=== PATIENT | female | born 1980 | race American Indian/Alaskan Native ===

== ENCOUNTER 2017-05-29 16:27 | Inpatient (IN) | payer BC, OTHER ==
--- NOTE | 2017-05-29 17:02 | Emergency Department Report ---
HPI - General Chief Complaint: Adult Asthma Time Seen by Provider: 05/29/17 16:46 - HPI HPI: 37-year-old female presents to the emergency department by EMS from home with complaint of shortness of breath, wheezing and some chest tightness. The patient has a history of asthma. EMS came by the house earlier for similar symptoms but she started to feel better after a breathing treatment. After they left, the symptoms appeared to worsen so EMS was called back and has since then brought her in for further evaluation. In route she received breathing treatments, supplemental oxygen and Solu-Medrol. She says that she had a history of pneumonia back in August 2016 and says that "this feels similar." She denies any fever, back pain, nausea, vomiting or diaphoresis. She is a tobacco smoker but denies any illicit drug use or abuse. She uses 2 different inhalers and has a nebulizer breathing machine at home that has not helped her symptoms. No recent travel or sick contacts at home, immobility or recent surgery. She does not have a primary care physician. ED Past Medical Hx - Past Medical History Hx Hypertension: Yes Hx Asthma: Yes - Surgical History Additional Surgical History: laproscopic, myomectomy - Social History Smoking Status: Current Every Day Smoker - Medications Home Medications: Home Medications Medication Instructions Recorded Confirmed Last Taken Type Omeprazole 40 mg PO QAC 05/29/17 05/29/17 Unknown History traMADol [Ultram] 50 mg PO Q6HR PRN 05/29/17 05/29/17 Unknown History ED Review of Systems ROS: Stated complaint: MP Other details as noted in HPI Comment: All other systems reviewed and negative Constitutional: denies: chills, fever Eyes: denies: eye pain, eye discharge, vision change ENT: denies: ear pain, throat pain Respiratory: cough, shortness of breath, wheezing Cardiovascular: denies: palpitations, edema Gastrointestinal: denies: abdominal pain, nausea, diarrhea Genitourinary: denies: urgency, dysuria, discharge Musculoskeletal: denies: back pain, joint swelling, arthralgia Skin: denies: rash, lesions Neurological: denies: headache, weakness, paresthesias Physical Exam - Physical Exam Physical Exam: GENERAL: The patient is well-developed well-nourished. HENT: Normocephalic. Atraumatic. Patient has moist mucous membranes. EYES: Extraocular motions are intact. Pupils equal reactive to light bilaterally. NECK: Supple. Trachea is midline. CHEST/LUNGS: Coarse breath sounds. There is some tachypnea with accessory muscle use. No cough heard during examination. There is some respiratory distress noted. HEART/CARDIOVASCULAR: Regular. There is mild tachycardia. There is no murmur. ABDOMEN: Abdomen is soft, nontender. Patient has normal bowel sounds. Obese habitus. SKIN: Skin is warm and dry. NEURO: The patient is awake, alert, and oriented. The patient is cooperative. The patient has no focal neurologic deficits. The patient has normal speech. MUSCULOSKELETAL: There is no tenderness or deformity. There is no limitation range of motion. There is no evidence of acute injury. ED Course - Reevaluation(s) Reevaluation #1: Patient had a pulse ox in the 90s while on the nonrebreather upon arrival to the emergency department. We attempted to titrate her down to nasal cannula. However when she was on 2 L nasal cannula for a while the patient was found to have hypoxia in the mid 80s. We started titrating back up with the patient still remained hypoxic and required BiPAP placement. An ABG obtained prior to the BiPAP shows no acidosis or hypercapnia but there is significant hypoxia with a PO2 of 32 while on supplemental oxygen. Chest x-ray shows some mild edema but no pleural effusions and no pneumonia. BNP is greater than 1000. D- dimer is greater than 2000. She is awaiting a CT angiography of the chest. 05/29/17 19:08 Reevaluation #2: 05/29/17 20:39 The patient was placed on the BiPAP earlier which did help with the hypoxia but the patient still had increased work of breathing and had a respiratory rate that varied between 45 and 60 breaths per minute. She did not complain of any claustrophobia or anxiety and yet she was severely breathing over the BiPAP machine. I had a long conversation with the patient and her mother about intubation in order to get the work of breathing under control. We attempted another breathing treatment and some IV magnesium but it did not help and eventually the decision was made between all of us that we will proceed with the intubation procedure. - Consultations Consultation #1: I spoke with the [facility] and got permission to keep the patient by Dr. Rogers. 05/29/17 20:41 - ABG Interpretation Ph: [phone] PCO2: 28 PO2: 32 Bicarbonate: 19 Interpretation: respiratory alkalosis, other (hypoxemia) - Intubation Time Out Performed: Yes Sedative: Etomidate Mg Given: 20 Paralytic: Rocuronium Mg Given: 100 Laryngoscope: other (glydescope) Size: 4 Assist Device Used: Bougie ET Tube Size: 7.5 Tube Secured Depth (cm): 24 Tube Placement Confirmation: visualized tube passing t, equal breath sounds bilat, confirmation by capnometr Patient Tolerated Procedure: well Intubation Complications: other (airway edematous, used bougie) ED Medical Decision Making - Lab Data Result diagrams: 05/31/17 08:49 05/31/17 08:49 - EKG Data -: EKG Interpreted by Me EKG shows normal: sinus rhythm, axis, intervals, QRS complexes, ST-T waves Rate: tachycardia (123 bpm) - EKG Data When compared to previous EKG there are: previous EKG unavailable Interpretation: normal EKG (sinus tachycardia) - Radiology Data Radiology results: report reviewed, image reviewed interpreted by me: There is bilateral opacities and/or infiltrates. This could be edema versus pneumonia. No layering pleural effusion seen. No pneumothorax. EXAM: CT ANGIO CHEST HISTORY: SOB, elevated dimer TECHNIQUE: A CT angiogram was performed following the intravenous injection of 100 cc of Omnipaque 350. Rotational, sagittal and coronal MIP reconstructions were reviewed. FINDINGS: There is no evidence of pulmonary embolus or aortic dissection. The heart size is normal. The lungs appear diffusely congested with extensive airspace disease in both lungs and small pleural effusions. The patient is intubated with the tip of the ET tube in good position above the serjio. The thoracic aorta is normal in caliber. At the thoracic inlet the thyroid gland appears normal. In the upper abdomen there is an NG tube coursing into the stomach. The adrenal glands are not enlarged. The skeletal structures are well-maintained. IMPRESSION: No evidence of pulmonary embolus or aortic dissection. Extensive bilateral airspace disease in both lungs with small effusions. As to whether the findings are related to pulmonary edema versus diffuse bilateral pneumonia is uncertain. Satisfactory position of the ET tube and NG tube. Transcribed By: RB Dictated By: ELLE MCMILLAN MD Electronically Authenticated By: ELLE MCMILLAN MD Signed Date/Time: 05/30/17 5545 - Medical Decision Making Patient presented originally with a complaint of some shortness of breath, chest tightness and history of asthma and tobacco abuse. Patient received steroids in route as well as some breathing treatments. The chest x-ray appeared consistent with either bilateral edema versus infiltrates. She does have a leukocytosis, blood cultures were sent and she was started on empiric antibiotics. She was also given some Lasix to try and start diuresis. Patient had some hypoxia with supplemental oxygen by nasal cannula and was titrated up to the BiPAP machine. However her respiratory status appeared to worsen and despite having a normal pulse ox on BiPAP, she had a respiratory rate between 50 and 60 and continued to have increased work of breathing. After a lengthy discussion between the patient and her mother, the decision was made to intubate the patient for protection of airway and to help with the work of breathing. Patient was intubated. Repeat chest x-ray shows some increased infiltrates or edema. Right now she has a pulse ox in the low 90s. She will get a CT angiography of the chest to rule out a PE as etiology of her symptoms. She was given some Lasix for diuresis. The patient will be admitted to the nighttime hospitalist, Dr Santiago, who will follow the CT angiography chest results. - Differential Diagnosis CHF, pneumonia, asthma, sepsis Critical Care Time: Yes Critical care time in (mins) excluding proc time.: 35 Critical care attestation.: If time is entered above; I have spent that time in minutes in the direct care of this critically ill patient, excluding procedure time. Critical care time was spent on this patient during her initial evaluation, multiple re-evaluations , lengthy discussion with the patient and family, ordering interpretation of labs and imaging, disposition planning, discussion with the hospitalist, titration of sedation medication, administration of antibiotics and diuretics. This does not include the time spent doing the intubation procedure. ED Disposition Clinical Impression: Hypoxia, Tobacco abuse, Acute respiratory failure with hypoxia Respiratory failure Qualifiers: Chronicity: acute Respiratory failure complication: hypoxia Qualified Code(s): J96.01 - Acute respiratory failure with hypoxia Leukocytosis Qualifiers: Leukocytosis type: unspecified Qualified Code(s): D72.829 - Elevated white blood cell count, unspecified Disposition: OP ADMIT IP TO THIS HOSP Is pt being admited?: Yes Condition: Serious
[2017-05-29] MEDS ORDERED: NACL 0.9% 1000 ML 1,000 ML IV ONE (17:11)
[2017-05-29 17:17] LABS: BUN/Creatinine Ratio 18; Blood Urea Nitrogen 9 mg/dL (7-17); Calcium 8.4 mg/dL (8.4-10.2); Hemolysis Index 8
[2017-05-29 17:27] LABS: Hematocrit 33.5 % (30.3-42.9); Hemoglobin 10.7 gm/dl (10.1-14.3); Red Blood Count 4.03 M/mm3 (3.65-5.03)
[2017-05-29 17:28] LABS: Mean Corpuscular HGB Conc 32 % (30-34); Mean Corpuscular Hemoglobin 27 pg (28-32); Mean Corpuscular Volume 83 fl (79-97); Platelet Count 344 K/mm3 (140-440); Red Cell Distribution Width 18.8 % (13.2-15.2)
--- NOTE | 2017-05-29 17:50 | XRay Report ---
FINAL REPORT EXAM: XR CHEST 1V AP HISTORY: SOB TECHNIQUE: AP portable view of the chest PRIORS: None. FINDINGS: Lines, tubes, and devices: N/A Lungs and pleura: Trachea is normal in position. Bilateral symmetrical alveolar infiltrates are present suggesting pulmonary edema with perihilar distribution. There is no evidence for pleural effusion, vascular congestion, or pneumothorax. Cardiomediastinal silhouette: Cardiac and mediastinal silhouettes are unremarkable. Other: Bony structures are intact. Extensive haziness over the lung bases is likely due to generous overlying soft tissues. IMPRESSION: Findings suggesting pulmonary edema bilaterally.
[2017-05-29] MEDS ORDERED: ATROVENT IH ONE ×2 (17:52→20:15)
[2017-05-29] MEDS ORDERED: PROVENTIL IH ONE (17:52)
[2017-05-29 18:31] LABS: Band Neutrophils # (Manual) 1.5 K/mm3; Basophils % (Manual) 0 % (0.0-1.8); Eosinophils % (Manual) 0 % (0.0-4.3); Hypochromasia 1+; Ovalocytes Few; Platelet Estimate Consistent w Auto; Total Cells Counted 100
[2017-05-29] MEDS ORDERED: ZITHROMAX 500 MG in NACL 0.9% 250ML 250 ML IV ONE (18:50)
[2017-05-29] MEDS ORDERED: ROCEPHIN/NS 1 GM/50 ML 1 GM/50 ML BAG IV ONE (18:50)
[2017-05-29] MEDS ORDERED: NACL ONE (19:05)
[2017-05-29] MEDS ORDERED: cefTRIAXone 1 GM in NACL 0.9% 20 ML IV ONE (19:15)
[2017-05-29] MEDS ORDERED: MAGNESIUM SULFATE 2GM/50ML 2 GM/50 ML BAG IV ONE (19:33)
[2017-05-29] MEDS ORDERED: XOPENEX IH ONE ×2 (19:36→20:15)
[2017-05-29] MEDS ORDERED: ARTIFICIAL TEARS OPHTH OINT OU PRN (20:11)
[2017-05-29] MEDS ORDERED: VASELINE LIP THERAPY TP PRN (20:11)
[2017-05-29] MEDS ORDERED: LASIX IV ONE (20:56)
[2017-05-29] MEDS: DIPRIVAN 10 MG/ML 1,000 MG/100 ML BOTTLE IV SCH (21:11)
[2017-05-29] MEDS ORDERED: KETALAR ONE (21:18)
[2017-05-29] MEDS ORDERED: AMIDATE IV ONE (21:18)
[2017-05-29] MEDS ORDERED: ZEMURON IV ONE (21:18)
--- NOTE | 2017-05-29 21:20 | XRay Report ---
FINAL REPORT EXAM: XR CHEST 1V AP HISTORY: ETT placement TECHNIQUE: AP portable view of the chest PRIORS: CXR 05/29/2017 FINDINGS: Lines, tubes, and devices: An endotracheal tube terminates 1.6 cm above the serjio. Lungs and pleura: Trachea is normal in position. Haziness throughout the lower 2/3 of both lung montero suggest pleural effusions tracking posteriorly. There is also bilateral alveolar infiltrates suggesting pulmonary edema, worse than seen previously. Cardiomediastinal silhouette: Cardiac and mediastinal silhouettes are unremarkable. Other: Bony structures are intact. IMPRESSION: 1. Endotracheal tube terminating 1.6 cm above the serjio 2. Bilateral pleural effusions tracking posteriorly 3. Bilateral pulmonary edema, worse than seen previously.
[2017-05-29] MEDS ORDERED: DULCOLAX PR PRN (22:47)
[2017-05-29] MEDS ORDERED: MILK OF MAGNESIA PO PRN (22:47)
[2017-05-29] MEDS ORDERED: ALUM-MAG HYDROX-SIMETH 200-200-20MG/5ML PO PRN (22:47)
[2017-05-29] MEDS ORDERED: DIPRIVAN 10 MG/ML 1,000 MG/100 ML BOTTLE IV ONE (23:36)
--- NOTE | 2017-05-30 00:13 | History and Physical Report ---
History of Present Illness Date of admission: 05/29/17 22:47 Chief complaint: worsening dyspnea History of present illness: 37-year-old female presents to the emergency department by EMS from home with complaint of shortness of breath, wheezing and some chest tightness. The patient has a history of asthma. EMS came by the house earlier for similar symptoms but she started to feel better after a breathing treatment. After they left, the symptoms appeared to worsen so EMS was called back and has since then brought her in for further evaluation. In route she received breathing treatments, supplemental oxygen and Solu-Medrol. She says that she had a history of pneumonia back in August 2016 and says that "this feels similar." She denies any fever, back pain, nausea, vomiting or diaphoresis. She is a tobacco smoker but denies any illicit drug use or abuse. She uses 2 different inhalers and has a nebulizer breathing machine at home that has not helped her symptoms. No recent travel or sick contacts at home, immobility or recent surgery. She does not have a primary care physician. she was put on BIPAP and subsequently intubated as her respiratory function was deteriorating. presently she is intubated and sedated and there is no family member in the room. Hx unobtainable and the hx is based on the ED physician report Past History Past Medical History: other (asthma) Past Surgical History: Other (myomectomy) Social history: denies: smoking Family history: no significant family history Medications and Allergies Allergies Allergy/AdvReac Type Severity Reaction Status Date / Time No Known Allergies Allergy Verified 07/31/13 21:05 Home Medications Medication Instructions Recorded Confirmed Last Taken Type Omeprazole 40 mg PO QAC 05/29/17 05/29/17 Unknown History traMADol [Ultram] 50 mg PO Q6HR PRN 05/29/17 05/29/17 Unknown History Active Meds: Active Medications Al Hydrox/Mg Hydrox/Simethicone (Alum-Mag Hydrox-Simeth [id number]/5ml) 30 ml PO Q4H PRN PRN Reason: Indigestion Albuterol/Ipratropium (Duoneb *Not For Prn Use*) 1 ampul IH Q6HRT EMIL Arformoterol Tartrate (Brovana Nebu) 15 mcg IH Q12HRT EMIL Bisacodyl (Dulcolax) 10 mg [place] QDAY PRN PRN Reason: constipation unrelieved by MOM Budesonide (Pulmicort) 0.5 mg IH Q12HRT EMIL Heparin Sodium (Porcine) (Heparin) 5,000 unit SUB-Q Q8HR EMIL Hydrophilic Ointment (Vaseline Lip Therapy) 1 applic TP Q2HR PRN PRN Reason: Dry Lips Propofol (Diprivan 10 Mg/Ml) 1,000 mg in 100 mls @ 3.143 mls/hr IV TITR EMIL; Protocol Last Admin: 05/29/17 21:11 Dose: 25 mcg/kg/min, 15.717 mls/hr Dextrose/Sodium Chloride (D5/0.45ns) 1,000 mls @ 75 mls/hr IV DIRECT EMIL Azithromycin 500 mg/ Sodium (Chloride) 250 mls @ 250 mls/hr IV Q24HR EMIL Ceftriaxone Sodium 1 gm/ (Sodium Chloride) 20 mls @ 20 mls/10 min IV DAILY EMIL ; Protocol Magnesium Hydroxide (Milk Of Magnesia) 30 ml PO Q4H PRN PRN Reason: Constipation Methylprednisolone Sodium Succinate (Solu-Medrol) 80 mg IV Q6HR EMIL Multi-Ingred Cream/Lotion/Oil/Oint (Artificial Tears Ophth Oint) 1 applic OU Q4HR PRN PRN Reason: Dry Eye(s) Review of Systems All systems: negative (ROS cannot be performed as she is intubated and sedated) Exam - Constitutional Vitals: Temp Pulse Resp BP Pulse Ox 98.8 F 110 H 27 H 130/60 93 05/29/17 17:04 05/29/17 22:00 05/29/17 22:00 05/29/17 22:00 05/29/17 22:00 General appearance: Present: obese - EENT Eyes: Present: PERRL - Neck Neck: Present: supple. Absent: masses or JVD - Respiratory Respiratory effort: normal Respiratory: bilateral: diminished, wheezing (scattered wheezing), negative: rhonchi - Cardiovascular Rhythm: other (tachicardia) Heart Sounds: Present: S1 & S2 - Extremities Extremity abnormal: edema (trace leg edema pari) - Abdominal General gastrointestinal: Present: soft, non-tender. Absent: hepatomegaly, splenomegaly - Rectal Rectal Exam: deferred - Integumentary Integumentary: Present: clear - Neurologic Neurologic: other (unable to perform as she is sedated) Results - Labs CBC & Chem 7: 05/29/17 16:41 05/29/17 16:41 Labs: Abnormal lab results 05/29/17 05/29/17 05/29/17 Range/Units 16:41 16:41 16:58 WBC 21.6 H (4.5-11.0) K/mm3 MCH 27 L (28-32) pg RDW 18.8 H (13.2-15.2) % Seg Neuts % (Manual) 90.0 H (40.0-70.0) % Lymphocytes % (Manual) 1.0 L (13.4-35.0) % Seg Neutrophils # Man 19.4 H (1.8-7.7) K/mm3 Lymphocytes # (Manual) 0.2 L (1.2-5.4) K/mm3 D-Dimer 2328.67 H (0-234) ng/mlDDU POC ABG pH (7.35-7.45) POC ABG pCO2 (35-45) POC ABG pO2 (80-105) Creatinine 0.5 L (0.7-1.2) mg/dL Glucose 121 H (65-100) mg/dL NT-Pro-B Natriuret Pep (0-450) pg/mL 05/29/17 05/29/17 05/29/17 Range/Units 16:58 18:36 20:55 WBC (4.5-11.0) K/mm3 MCH (28-32) pg RDW (13.2-15.2) % Seg Neuts % (Manual) (40.0-70.0) % Lymphocytes % (Manual) (13.4-35.0) % Seg Neutrophils # Man (1.8-7.7) K/mm3 Lymphocytes # (Manual) (1.2-5.4) K/mm3 D-Dimer (0-234) ng/mlDDU POC ABG pH 7.240 L (7.35-7.45) POC ABG pCO2 28.7 L 47.0 H (35-45) POC ABG pO2 32 L 43 L (80-105) Creatinine (0.7-1.2) mg/dL Glucose (65-100) mg/dL NT-Pro-B Natriuret Pep 1053 H (0-450) pg/mL Assessment and Plan - Patient Problems (1) Acute respiratory failure with hypoxia Current Visit: Yes Status: Acute Plan to address problem: admit to ICU patient is intubated pulmonary consult to Dr. Marshall. he was notified and personally informed vent. management per Dr. Marshall Empiric IV abx (2) Asthma exacerbation Current Visit: Yes Status: Acute Qualifiers: Asthma severity: severe Plan to address problem: start on duoneb via nebulizer Q6 hrs , start on pulmicort and LABA via nebulizer and IV steroids (3) Neutrophilic leukocytosis Current Visit: Yes Status: Acute Plan to address problem: possible ? pneumonia blood cultures x 2 start on empiric abx check procalcitonin (4) Obesity Current Visit: Yes Status: Chronic Qualifiers: Obesity type: due to excess calories (5) Normocytic anemia Current Visit: Yes Status: Chronic Plan to address problem: mild, no overt bleed . needs w/u as an out patient
[2017-05-30] MEDS ORDERED: NACL ONE (00:29)
[2017-05-30] MEDS ORDERED: MAGNESIUM SULFATE IV ONE (01:37)
[2017-05-30] MEDS ORDERED: DIPRIVAN 10 MG/ML 1,000 MG/100 ML BOTTLE IV ONE ×2 (01:59→05:31)
[2017-05-30] MEDS ORDERED: fentaNYL DRIP Premix 2,000 MCG/100 ML BAG IV ONE (03:29)
[2017-05-30] MEDS: fentaNYL DRIP Premix 2,000 MCG/100 ML BAG IV SCH ×5 (03:45→19:30)
[2017-05-30 03:52] LABS: Hematocrit 33.3 % (30.3-42.9); Hemoglobin 10.7 gm/dl (10.1-14.3); Mean Corpuscular HGB Conc 32 % (30-34); Mean Corpuscular Hemoglobin 26 pg (28-32); Mean Corpuscular Volume 82 fl (79-97); Platelet Count 324 K/mm3 (140-440); Red Blood Count 4.06 M/mm3 (3.65-5.03); Red Cell Distribution Width 18.6 % (13.2-15.2)
[2017-05-30 04:17] LABS: BUN/Creatinine Ratio 16; Blood Urea Nitrogen 8 mg/dL (7-17); Calcium 8.2 mg/dL (8.4-10.2); Hemolysis Index 8
[2017-05-30 05:57] LABS: Total Cells Counted 100
--- NOTE | 2017-05-30 05:57 | Cat Scan Report ---
FINAL REPORT EXAM: CT ANGIO CHEST HISTORY: SOB, elevated dimer TECHNIQUE: A CT angiogram was performed following the intravenous injection of 100 cc of Omnipaque 350. Rotational, sagittal and coronal MIP reconstructions were reviewed. FINDINGS: There is no evidence of pulmonary embolus or aortic dissection. The heart size is normal. The lungs appear diffusely congested with extensive airspace disease in both lungs and small pleural effusions. The patient is intubated with the tip of the ET tube in good position above the serjio. The thoracic aorta is normal in caliber. At the thoracic inlet the thyroid gland appears normal. In the upper abdomen there is an NG tube coursing into the stomach. The adrenal glands are not enlarged. The skeletal structures are well-maintained. IMPRESSION: No evidence of pulmonary embolus or aortic dissection. Extensive bilateral airspace disease in both lungs with small effusions. As to whether the findings are related to pulmonary edema versus diffuse bilateral pneumonia is uncertain. Satisfactory position of the ET tube and NG tube.
[2017-05-30 05:58] LABS: Band Neutrophils # (Manual) 6.5 K/mm3; Basophils % (Manual) 0 % (0.0-1.8); Eosinophils % (Manual) 0 % (0.0-4.3)
[2017-05-30 05:59] LABS: Anisocytosis 1+; Hypochromasia 1+; Ovalocytes Few
[2017-05-30] MEDS: HEPARIN SUB-Q SCH ×3 (06:51→21:34)
[2017-05-30] MEDS: PULMICORT IH SCH ×5 (08:17→20:52)
[2017-05-30] MEDS: DUONEB *Not for PRN Use IH SCH ×4 (08:17→20:50)
[2017-05-30] MEDS: BROVANA NEBU IH SCH ×3 (08:18→19:40)
[2017-05-30] MEDS: DIPRIVAN 10 MG/ML 1,000 MG/100 ML BOTTLE IV SCH ×5 (09:06→20:42)
--- NOTE | 2017-05-30 09:22 | XRay Report ---
Single view chest: Compared to 05/29/17. History: Followup for respiratory failure. Findings: Cardiomegaly. Tip of endotracheal tube in normal position. Pulmonary venous congestion with bilateral diffuse infiltrates. No significant interval change. Impression: No significant interval change.
--- NOTE | 2017-05-30 09:45 | Event Note ---
Date: 05/30/17 Patient with acute respiratory failure due to asthma exacerbation. I have seen and examined her. She is intubated on ventilator. Continue current management.
[2017-05-30] MEDS ORDERED: TYLENOL PR ONE (11:03)
[2017-05-30] MEDS ORDERED: NACL 0.9% 100 ML ONE (11:18)
[2017-05-30] MEDS: cefTRIAXone 1 GM in NACL 0.9% 20 ML IV SCH (11:45)
[2017-05-30] MEDS: ZITHROMAX 500 MG in NACL 0.9% 250ML 250 ML IV SCH (12:40)
--- NOTE | 2017-05-30 17:08 | Consultation ---
History of Present Illness Consult date: 05/30/17 Requesting physician: LEO BAJWA Reason for consult: hypoxemia History of present illness: 37 y/o female, with known asthma and HTN admitted with acute respiratory failure. Intubated in ED. Unable to give much history now that intubated. Awake on Propofol and Fent. Rass of 0 and [place] of 2. No family at bedside. CXR consistent with bilateral alveolar infiltrates, most likely EDEMA. Past History Past Medical History: GERD, hypertension, other (asthma) Past Surgical History: Other (myomectomy) Social history: denies: smoking Family history: no significant family history Medications and Allergies Allergies Allergy/AdvReac Type Severity Reaction Status Date / Time No Known Allergies Allergy Verified 07/31/13 21:05 Home Medications Medication Instructions Recorded Confirmed Last Taken Type Omeprazole 40 mg PO QAC 05/29/17 05/29/17 Unknown History traMADol [Ultram] 50 mg PO Q6HR PRN 05/29/17 05/29/17 Unknown History Active Meds: Active Medications Al Hydrox/Mg Hydrox/Simethicone (Alum-Mag Hydrox-Simeth 531-427-63sg/5ml) 30 ml PO Q4H PRN PRN Reason: Indigestion Albuterol/Ipratropium (Duoneb *Not For Prn Use*) 1 ampul IH Q6HRT [facility] Last Admin: 05/30/17 14:24 Dose: 1 ampul Arformoterol Tartrate (Brovana Nebu) 15 mcg IH Q12HRT [facility] Last Admin: 05/30/17 08:18 Dose: 15 mcg Bisacodyl (Dulcolax) 10 mg LA QDAY PRN PRN Reason: constipation unrelieved by MOM Budesonide (Pulmicort) 0.5 mg IH Q12HRT [facility] Last Admin: 05/30/17 08:17 Dose: 0.5 mg Heparin Sodium (Porcine) (Heparin) 5,000 unit SUB-Q Q8HR [facility] Last Admin: 05/30/17 06:51 Dose: 5,000 unit Hydrophilic Ointment (Vaseline Lip Therapy) 1 applic TP Q2HR PRN PRN Reason: Dry Lips Last Admin: 05/30/17 10:42 Dose: 1 applic Propofol (Diprivan 10 Mg/Ml) 1,000 mg in 100 mls @ 3.143 mls/hr IV TITR [facility]; Protocol Last Admin: 05/30/17 15:55 Dose: 25 mcg/kg/min, 15.717 mls/hr Dextrose/Sodium Chloride (D5/0.45ns) 1,000 mls @ 75 mls/hr IV DIRECT [facility] Azithromycin 500 mg/ Sodium (Chloride) 250 mls @ 250 mls/hr IV Q24HR [facility] Last Admin: 05/30/17 12:40 Dose: 250 mls/hr Ceftriaxone Sodium 1 gm/ (Sodium Chloride) 20 mls @ 20 mls/10 min IV DAILY [facility] ; Protocol Last Admin: 05/30/17 11:45 Dose: 20 mls/10 min Fentanyl Citrate (Fentanyl Drip Premix) 2,000 mcg in 100 mls @ 5.239 mls/hr IV TITR [facility]; Protocol Last Admin: 05/30/17 16:23 Dose: 4 mcg/kg/hr, 20.956 mls/hr Magnesium Hydroxide (Milk Of Magnesia) 30 ml PO Q4H PRN PRN Reason: Constipation Methylprednisolone Sodium Succinate (Solu-Medrol) 80 mg IV Q6HR [facility] Last Admin: 05/30/17 06:51 Dose: 80 mg Multi-Ingred Cream/Lotion/Oil/Oint (Artificial Tears Ophth Oint) 1 applic OU Q4HR PRN PRN Reason: Dry Eye(s) Review of Systems ROS unobtainable: due to endotracheal tube Physical Examination Vital signs: Vital Signs Pulse Ox 89 05/29/17 16:32 General appearance: no acute distress, alert Eyes: non-icteric ENT: other (orally intubated and sedated) Neck: supple Effort: normal Ascultation: Bilateral: diminished breath sounds, rales (ocassional) Percussion: Bilateral: not dull Cardiovascular: regular rate and rhythm Gastrointestinal: normoactive bowel sounds, soft, other (mildly obese) Integumentary: normal Extremities: edema Musculoskeletal: no deformities normal mental status, non-focal exam Results - Laboratory Findings CBC and BMP: 05/31/17 08:49 05/31/17 08:49 ABG POC ABG pH 7.399 (7.35-7.45) 05/30/17 04:30 POC ABG pCO2 40.9 (35-45) 05/30/17 04:30 POC ABG pO2 68 (80-105) L 05/30/17 04:30 POC ABG HCO3 25.3 05/30/17 04:30 POC ABG Total CO2 27 05/30/17 04:30 POC ABG O2 Sat 93 05/30/17 04:30 PT/INR, D-dimer D-Dimer 2328.67 ng/mlDDU (0-234) H 05/29/17 16:58 Abnormal lab findings: Abnormal Labs 05/29/17 05/29/17 05/29/17 16:41 16:41 16:58 WBC 21.6 H MCH 27 L RDW 18.8 H Seg Neuts % (Manual) 90.0 H Lymphocytes % (Manual) 1.0 L Seg Neutrophils # Man 19.4 H Lymphocytes # (Manual) 0.2 L D-Dimer 2328.67 H POC ABG pH POC ABG pCO2 POC ABG pO2 Creatinine 0.5 L Glucose 121 H Calcium NT-Pro-B Natriuret Pep 05/29/17 05/29/17 05/29/17 16:58 18:36 20:55 WBC MCH RDW Seg Neuts % (Manual) Lymphocytes % (Manual) Seg Neutrophils # Man Lymphocytes # (Manual) D-Dimer POC ABG pH 7.240 L POC ABG pCO2 28.7 L 47.0 H POC ABG pO2 32 L 43 L Creatinine Glucose Calcium NT-Pro-B Natriuret Pep 1053 H 05/30/17 05/30/17 05/30/17 03:38 03:38 04:30 WBC 30.8 H MCH 26 L RDW 18.6 H Seg Neuts % (Manual) 74.0 H Lymphocytes % (Manual) 4.0 L Seg Neutrophils # Man 22.8 H Lymphocytes # (Manual) D-Dimer POC ABG pH POC ABG pCO2 POC ABG pO2 68 L Creatinine 0.5 L Glucose 165 H Calcium 8.2 L NT-Pro-B Natriuret Pep - Diagnostic Findings Chest x-ray: image reviewed (as stated in HPI) Assessment and Plan 37 y/o female with known asthma and HTN admitted with acute respiratory failure , likely secondary to pulmonary edema from noncompliance with medical therapy. 1. Per patient, is suppose to be on a diuretic but does not take it daily. BP is normalized now but likely because of sedative medication. Once dry and extubated will address with oral BP meds 2. Will give lasix today 3. Ok with steroids at current dosing 4. Continue BID pulmicort and brovana 5. Ok with abx therapy but if cultures negative will likely stop. White count could be stress related 6. Overall prognosis is guarded. CCT 31 minutes.
[2017-05-30] MEDS ORDERED: LASIX IV ONE (18:00)
[2017-05-30] MEDS: D5/0.45NS 1,000 ML IV SCH (20:38)
[2017-05-30] MEDS ORDERED: LASIX ONE (20:53)
[2017-05-31] MEDS: DIPRIVAN 10 MG/ML 1,000 MG/100 ML BOTTLE IV SCH ×4 (01:22→20:39)
[2017-05-31] MEDS: fentaNYL DRIP Premix 2,000 MCG/100 ML BAG IV SCH ×4 (01:22→20:38)
[2017-05-31] MEDS: DUONEB *Not for PRN Use IH SCH ×4 (02:32→20:38)
--- NOTE | 2017-05-31 02:43 | XRay Report ---
FINAL REPORT EXAM: XR CHEST 1V AP HISTORY: follow up respiratory failure TECHNIQUE: A portable semi-upright view the chest was obtained and compared to the study of 05/29/2017. FINDINGS: The lungs reveal partial clearance of airspace disease bilaterally. The heart size is normal. The ET tube and NG tube appear in good position. The bones and soft tissues otherwise are well maintained. IMPRESSION: Partial clearance of infiltrates/congestion since the previous study.
[2017-05-31] MEDS: HEPARIN SUB-Q SCH ×3 (05:12→22:25)
[2017-05-31] MEDS: PULMICORT IH SCH ×2 (07:13→19:04)
[2017-05-31] MEDS: BROVANA NEBU IH SCH ×2 (07:13→19:04)
--- NOTE | 2017-05-31 08:18 | Progress Note ---
Assessment and Plan Assessment and plan: Acute respiratory failure due to asthma exacerbation and acute pulmonary edema. She is intubated, on ventilator. Pulm following. Asthma exacerbation. Continue solumedrol, Duoneb Acute pulmonary edema, poss acute CHF. Obtain Echocardiogram, BNP. Lasix given. Continue lasix 40mg iv Q 12hr DVT prophylaxis with Heparin. Leukocytosis likely due to SIRS SIRS. Morbid obesity. Will tour counselor after extubated History Interval history: Patient still intubated, Patient with acute resp failure, No fever Hospitalist Physical - Physical exam Narrative exam: Gen appearance: Not in acute distress, lying in bed, orally intubated HEENT:Normocephalic,atraumatic Neck:supple, no JVD Lungs: Bilateral rhonchi, bilateral crackles Heart: S1 and S2 regular, no murmurs, rubs or gallop Abdomen: soft, non tender, non distended, normal bowel sounds Ext: Bilateral pedal edema, no clubbing, no cyanosis Neuro: Intubated, sedated - Constitutional Vitals: Temp Pulse Resp BP Pulse Ox 98.9 F 81 20 125/83 98 05/31/17 04:00 05/31/17 07:55 05/31/17 07:55 05/31/17 06:00 05/31/17 07:14 General appearance: Present: obese Results - Labs CBC & Chem 7: 05/31/17 08:49 05/31/17 08:49 Labs: Laboratory Last Values WBC 30.8 K/mm3 (4.5-11.0) H 05/30/17 03:38 RBC 4.06 M/mm3 (3.65-5.03) 05/30/17 03:38 Hgb 10.7 gm/dl (10.1-14.3) 05/30/17 03:38 Hct 33.3 % (30.3-42.9) 05/30/17 03:38 MCV 82 fl (79-97) 05/30/17 03:38 MCH 26 pg (28-32) L 05/30/17 03:38 MCHC 32 % (30-34) 05/30/17 03:38 RDW 18.6 % (13.2-15.2) H 05/30/17 03:38 Plt Count 324 K/mm3 (140-440) 05/30/17 03:38 Add Manual Diff Complete 05/30/17 03:38 Total Counted 100 05/30/17 03:38 Seg Neutrophils % Silhouette Artist 05/30/17 03:38 Seg Neuts % (Manual) 74.0 % (40.0-70.0) H 05/30/17 03:38 Band Neutrophils % 21.0 % 05/30/17 03:38 Lymphocytes % (Manual) 4.0 % (13.4-35.0) L 05/30/17 03:38 Reactive Lymphs % (Man) 0 % 05/30/17 03:38 Monocytes % (Manual) 1.0 % (0.0-7.3) 05/30/17 03:38 Eosinophils % (Manual) 0 % (0.0-4.3) 05/30/17 03:38 Basophils % (Manual) 0 % (0.0-1.8) 05/30/17 03:38 Metamyelocytes % 0 % 05/30/17 03:38 Myelocytes % 0 % 05/30/17 03:38 Promyelocytes % 0 % 05/30/17 03:38 Blast Cells % 0 % 05/30/17 03:38 Nucleated RBC % Not Reportable 05/30/17 03:38 Seg Neutrophils # Man 22.8 K/mm3 (1.8-7.7) H 05/30/17 03:38 Band Neutrophils # 6.5 K/mm3 05/30/17 03:38 Lymphocytes # (Manual) 1.2 K/mm3 (1.2-5.4) 05/30/17 03:38 Abs React Lymphs (Man) 0.0 K/mm3 05/30/17 03:38 Monocytes # (Manual) 0.3 K/mm3 (0.0-0.8) 05/30/17 03:38 Eosinophils # (Manual) 0.0 K/mm3 (0.0-0.4) 05/30/17 03:38 Basophils # (Manual) 0.0 K/mm3 (0.0-0.1) 05/30/17 03:38 Metamyelocytes # 0.0 K/mm3 05/30/17 03:38 Myelocytes # 0.0 K/mm3 05/30/17 03:38 Promyelocytes # 0.0 K/mm3 05/30/17 03:38 Blast Cells # 0.0 K/mm3 05/30/17 03:38 WBC Morphology Not Reportable 05/30/17 03:38 Hypersegmented Neuts Not Reportable 05/30/17 03:38 Hyposegmented Neuts Not Reportable 05/30/17 03:38 Hypogranular Neuts Not Reportable 05/30/17 03:38 Smudge Cells Not Reportable 05/30/17 03:38 Toxic Granulation Not Reportable 05/30/17 03:38 Toxic Vacuolation Not Reportable 05/30/17 03:38 Dohle Bodies Not Reportable 05/30/17 03:38 Pelger-Huet Anomaly Not Reportable 05/30/17 03:38 Aftab Rods Not Reportable 05/30/17 03:38 Platelet Estimate Appears normal 05/30/17 03:38 Clumped Platelets Not Reportable 05/30/17 03:38 Plt Clumps, EDTA Not Reportable 05/30/17 03:38 Large Platelets Not Reportable 05/30/17 03:38 Giant Platelets Not Reportable 05/30/17 03:38 Platelet Satelliting Not Reportable 05/30/17 03:38 Plt Morphology Comment Not Reportable 05/30/17 03:38 RBC Morphology Not Reportable 05/30/17 03:38 Dimorphic RBCs Not Reportable 05/30/17 03:38 Polychromasia Not Reportable 05/30/17 03:38 Hypochromasia 1+ 05/30/17 03:38 Poikilocytosis Not Reportable 05/30/17 03:38 Anisocytosis 1+ 05/30/17 03:38 Microcytosis Not Reportable 05/30/17 03:38 Macrocytosis Not Reportable 05/30/17 03:38 Spherocytes Not Reportable 05/30/17 03:38 Pappenheimer Bodies Not Reportable 05/30/17 03:38 Sickle Cells Not Reportable 05/30/17 03:38 Target Cells Not Reportable 05/30/17 03:38 Tear Drop Cells Not Reportable 05/30/17 03:38 Ovalocytes Few 05/30/17 03:38 Helmet Cells Not Reportable 05/30/17 03:38 [place] Bodies Not Reportable 05/30/17 03:38 [place] Rings Not Reportable 05/30/17 03:38 Ana Cells Not Reportable 05/30/17 03:38 Bite Cells Not Reportable 05/30/17 03:38 Crenated Cell Not Reportable 05/30/17 03:38 Elliptocytes Not Reportable 05/30/17 03:38 Acanthocytes (Spur) Not Reportable 05/30/17 03:38 Rouleaux Not Reportable 05/30/17 03:38 Hemoglobin C Crystals Not Reportable 05/30/17 03:38 Schistocytes Not Reportable 05/30/17 03:38 Malaria parasites Not Reportable 05/30/17 03:38 Stephen Bodies Not Reportable 05/30/17 03:38 Hem Pathologist Commnt No 05/30/17 03:38 D-Dimer 2328.67 ng/mlDDU (0-234) H 05/29/17 16:58 POC ABG pH 7.335 (7.35-7.45) L 05/31/17 04:12 POC ABG pCO2 51.1 (35-45) H 05/31/17 04:12 POC ABG pO2 94 (80-105) 05/31/17 04:12 POC ABG HCO3 27.3 05/31/17 04:12 POC ABG Total CO2 29 05/31/17 04:12 POC ABG O2 Sat 97 05/31/17 04:12 POC ABG Base Excess 1 05/31/17 04:12 FiO2 80 % 05/31/17 04:12 Sodium 139 mmol/L (137-145) 05/30/17 03:38 Potassium 4.2 mmol/L (3.6-5.0) 05/30/17 03:38 Chloride 100.9 mmol/L (98-107) 05/30/17 03:38 Carbon Dioxide 24 mmol/L (22-30) 05/30/17 03:38 Anion Gap 18 mmol/L 05/30/17 03:38 BUN 8 mg/dL (7-17) 05/30/17 03:38 Creatinine 0.5 mg/dL (0.7-1.2) L 05/30/17 03:38 Estimated GFR > 60 ml/min 05/30/17 03:38 BUN/Creatinine Ratio 16 % 05/30/17 03:38 Glucose 165 mg/dL (65-100) H 05/30/17 03:38 Calcium 8.2 mg/dL (8.4-10.2) L 05/30/17 03:38 Troponin T < 0.010 ng/mL (0.00-0.029) 05/29/17 16:58 NT-Pro-B Natriuret Pep 1053 pg/mL (0-450) H 05/29/17 16:58 HCG, Qual Negative (Negative) 05/29/17 16:41
[2017-05-31 09:10] LABS: Hematocrit 29.9 % (30.3-42.9); Hemoglobin 9.6 gm/dl (10.1-14.3); Mean Corpuscular HGB Conc 32 % (30-34); Mean Corpuscular Hemoglobin 27 pg (28-32); Mean Corpuscular Volume 82 fl (79-97); Platelet Count 356 K/mm3 (140-440); Red Blood Count 3.64 M/mm3 (3.65-5.03); Red Cell Distribution Width 18.4 % (13.2-15.2)
[2017-05-31] MEDS: cefTRIAXone 1 GM in NACL 0.9% 20 ML IV SCH (09:11)
[2017-05-31] MEDS: ZITHROMAX 500 MG in NACL 0.9% 250ML 250 ML IV SCH (09:11)
[2017-05-31] MEDS: D5/0.45NS 1,000 ML IV SCH (09:12)
[2017-05-31 09:19] LABS: BUN/Creatinine Ratio 44; Blood Urea Nitrogen 22 mg/dL (7-17); Calcium 8.3 mg/dL (8.4-10.2); Hemolysis Index 3
[2017-05-31] MEDS ORDERED: LASIX IV ONE (09:36)
--- NOTE | 2017-05-31 09:51 | Progress Note ---
Assessment and Plan 37 y/o female with known asthma and HTN admitted with acute respiratory failure , likely secondary to pulmonary edema from noncompliance with medical therapy. 1. Lasix again today. 2. Continue same regimen 3. Keep PEEP at same level until FiO2 is around 40% CCT 31 minutes. Subjective Date of service: 05/31/17 Interval history: CXR with slight improvement. ABG shows better oxygenation. Down to 60%. Remains awake. No family at bedside. Objective Vital Signs - 12hr 05/30/17 05/30/17 05/30/17 21:51 22:00 22:11 Temperature Pulse Rate 85 76 96 H Pulse Rate [ Anterior Throughout] Pulse Rate [ From Monitor] Respiratory 20 20 20 Rate Respiratory Rate [Anterior Throughout] Blood Pressure 107/45 99/45 99/45 O2 Sat by Pulse 95 95 98 Oximetry 05/30/17 05/30/17 05/30/17 22:21 22:30 22:41 Temperature Pulse Rate 80 81 72 Pulse Rate [ Anterior Throughout] Pulse Rate [ From Monitor] Respiratory 20 20 20 Rate Respiratory Rate [Anterior Throughout] Blood Pressure 99/45 103/49 103/49 O2 Sat by Pulse 98 96 99 Oximetry 05/30/17 05/30/17 05/30/17 22:51 23:00 23:11 Temperature Pulse Rate 69 68 71 Pulse Rate [ Anterior Throughout] Pulse Rate [ From Monitor] Respiratory 20 20 20 Rate Respiratory Rate [Anterior Throughout] Blood Pressure 103/49 98/45 98/45 O2 Sat by Pulse 100 99 100 Oximetry 05/30/17 05/30/17 05/30/17 23:21 23:30 23:41 Temperature Pulse Rate 67 66 67 Pulse Rate [ Anterior Throughout] Pulse Rate [ From Monitor] Respiratory 20 20 20 Rate Respiratory Rate [Anterior Throughout] Blood Pressure 98/45 102/46 102/46 O2 Sat by Pulse 99 97 99 Oximetry 05/30/17 05/31/17 05/31/17 23:51 00:00 00:11 Temperature 99.0 F Pulse Rate 68 80 66 Pulse Rate [ Anterior Throughout] Pulse Rate [ 79 From Monitor] Respiratory 20 20 20 Rate Respiratory Rate [Anterior Throughout] Blood Pressure 102/46 101/37 101/37 O2 Sat by Pulse 99 99 100 Oximetry 05/31/17 05/31/17 05/31/17 00:21 00:31 00:41 Temperature Pulse Rate 66 81 65 Pulse Rate [ Anterior Throughout] Pulse Rate [ From Monitor] Respiratory 20 21 20 Rate Respiratory Rate [Anterior Throughout] Blood Pressure 101/37 99/48 99/48 O2 Sat by Pulse 100 99 100 Oximetry 05/31/17 05/31/17 05/31/17 00:51 01:01 01:11 Temperature Pulse Rate 68 100 H 108 H Pulse Rate [ Anterior Throughout] Pulse Rate [ From Monitor] Respiratory 20 23 23 Rate Respiratory Rate [Anterior Throughout] Blood Pressure 101/37 118/66 118/66 O2 Sat by Pulse 99 96 100 Oximetry 05/31/17 05/31/17 05/31/17 01:21 01:30 01:41 Temperature Pulse Rate 90 106 H 75 Pulse Rate [ Anterior Throughout] Pulse Rate [ From Monitor] Respiratory 33 H 22 20 Rate Respiratory Rate [Anterior Throughout] Blood Pressure 118/66 122/71 122/71 O2 Sat by Pulse 99 93 100 Oximetry 05/31/17 05/31/17 05/31/17 01:51 02:00 02:11 Temperature Pulse Rate 63 66 75 Pulse Rate [ Anterior Throughout] Pulse Rate [ From Monitor] Respiratory 20 20 24 Rate Respiratory Rate [Anterior Throughout] Blood Pressure 122/71 99/43 99/43 O2 Sat by Pulse 99 97 100 Oximetry 05/31/17 05/31/17 05/31/17 02:21 02:30 02:33 Temperature Pulse Rate 63 72 Pulse Rate [ 64 Anterior Throughout] Pulse Rate [ From Monitor] Respiratory 20 20 Rate Respiratory 20 Rate [Anterior Throughout] Blood Pressure 99/43 114/61 O2 Sat by Pulse 100 100 Oximetry 05/31/17 05/31/17 05/31/17 02:41 02:48 02:51 Temperature Pulse Rate 64 64 Pulse Rate [ 66 Anterior Throughout] Pulse Rate [ From Monitor] Respiratory 17 19 Rate Respiratory 20 Rate [Anterior Throughout] Blood Pressure 114/61 114/61 O2 Sat by Pulse 100 100 Oximetry 05/31/17 05/31/17 05/31/17 03:00 03:11 03:21 Temperature Pulse Rate 63 61 59 L Pulse Rate [ Anterior Throughout] Pulse Rate [ From Monitor] Respiratory 15 17 24 Rate Respiratory Rate [Anterior Throughout] Blood Pressure 107/49 107/49 107/49 O2 Sat by Pulse 96 99 100 Oximetry 05/31/17 05/31/17 05/31/17 03:30 03:41 03:51 Temperature Pulse Rate 65 71 93 H Pulse Rate [ Anterior Throughout] Pulse Rate [ From Monitor] Respiratory 18 20 20 Rate Respiratory Rate [Anterior Throughout] Blood Pressure 106/49 106/49 106/49 O2 Sat by Pulse 94 100 99 Oximetry 05/31/17 05/31/17 05/31/17 03:58 04:00 04:11 Temperature 98.9 F Pulse Rate 89 90 106 H Pulse Rate [ Anterior Throughout] Pulse Rate [ 81 From Monitor] Respiratory 18 22 Rate Respiratory Rate [Anterior Throughout] Blood Pressure 106/49 122/72 122/72 O2 Sat by Pulse 99 96 96 Oximetry 05/31/17 05/31/17 05/31/17 04:21 04:30 04:41 Temperature Pulse Rate 104 H 104 H 98 H Pulse Rate [ Anterior Throughout] Pulse Rate [ From Monitor] Respiratory 17 18 24 Rate Respiratory Rate [Anterior Throughout] Blood Pressure 122/72 120/69 120/69 O2 Sat by Pulse 98 97 95 Oximetry 05/31/17 05/31/17 05/31/17 04:51 05:00 05:11 Temperature Pulse Rate 93 H 96 H 102 H Pulse Rate [ Anterior Throughout] Pulse Rate [ From Monitor] Respiratory 20 20 24 Rate Respiratory Rate [Anterior Throughout] Blood Pressure 120/69 122/75 122/75 O2 Sat by Pulse 99 96 95 Oximetry 05/31/17 05/31/17 05/31/17 05:21 05:30 05:41 Temperature Pulse Rate 83 88 94 H Pulse Rate [ Anterior Throughout] Pulse Rate [ From Monitor] Respiratory 24 18 25 H Rate Respiratory Rate [Anterior Throughout] Blood Pressure 122/75 123/64 123/64 O2 Sat by Pulse 96 91 93 Oximetry 05/31/17 05/31/17 05/31/17 05:51 06:00 06:11 Temperature Pulse Rate 78 86 75 Pulse Rate [ Anterior Throughout] Pulse Rate [ From Monitor] Respiratory 21 22 21 Rate Respiratory Rate [Anterior Throughout] Blood Pressure 123/64 125/83 125/83 O2 Sat by Pulse 95 94 Oximetry 05/31/17 05/31/17 05/31/17 06:21 06:30 06:41 Temperature Pulse Rate 70 67 58 L Pulse Rate [ Anterior Throughout] Pulse Rate [ From Monitor] Respiratory 20 20 20 Rate Respiratory Rate [Anterior Throughout] Blood Pressure 125/83 108/53 108/53 O2 Sat by Pulse 98 96 99 Oximetry 03/04/18 03/04/18 03/04/18 06:51 07:00 07:11 Temperature Pulse Rate 59 L 57 L 64 Pulse Rate [ Anterior Throughout] Pulse Rate [ From Monitor] Respiratory 20 20 20 Rate Respiratory Rate [Anterior Throughout] Blood Pressure 108/53 112/56 112/56 O2 Sat by Pulse 99 96 98 Oximetry 05/31/17 05/31/17 05/31/17 07:14 07:19 07:21 Temperature Pulse Rate 76 79 Pulse Rate [ 76 Anterior Throughout] Pulse Rate [ From Monitor] Respiratory 22 Rate Respiratory 20 Rate [Anterior Throughout] Blood Pressure 112/56 O2 Sat by Pulse 98 96 Oximetry 05/31/17 05/31/17 05/31/17 07:30 07:41 07:51 Temperature Pulse Rate 86 73 81 Pulse Rate [ Anterior Throughout] Pulse Rate [ From Monitor] Respiratory 18 15 23 Rate Respiratory Rate [Anterior Throughout] Blood Pressure 135/82 135/82 135/82 O2 Sat by Pulse 96 100 95 Oximetry 05/31/17 05/31/17 05/31/17 07:55 08:00 08:11 Temperature 98.0 F Pulse Rate 77 81 Pulse Rate [ 81 Anterior Throughout] Pulse Rate [ 77 From Monitor] Respiratory 23 23 Rate Respiratory 20 Rate [Anterior Throughout] Blood Pressure 120/76 120/76 O2 Sat by Pulse 94 96 Oximetry 05/31/17 08:21 Temperature Pulse Rate 84 Pulse Rate [ Anterior Throughout] Pulse Rate [ From Monitor] Respiratory 23 Rate Respiratory Rate [Anterior Throughout] Blood Pressure 120/76 O2 Sat by Pulse 95 Oximetry Constitutional: no acute distress, alert Eyes: non-icteric ENT: other (orally intubated and sedated) Neck: supple Effort: normal Ascultation: Bilateral: diminished breath sounds, rales (ocassional) Percussion: Bilateral: not dull Cardiovascular: regular rate and rhythm Gastrointestinal: normoactive bowel sounds, soft, other (mildly obese) Integumentary: normal Extremities: edema Neurologic: normal mental status, non-focal exam CBC and BMP: 05/31/17 08:49 05/31/17 08:49 ABG, PT/INR, D-dimer: ABG POC ABG pH 7.335 (7.35-7.45) L 05/31/17 04:12 POC ABG pCO2 51.1 (35-45) H 05/31/17 04:12 POC ABG pO2 94 (80-105) 05/31/17 04:12 POC ABG HCO3 27.3 05/31/17 04:12 POC ABG Total CO2 29 05/31/17 04:12 POC ABG O2 Sat 97 05/31/17 04:12 PT/INR, D-dimer D-Dimer 2328.67 ng/mlDDU (0-234) H 05/29/17 16:58 Abnormal lab findings: Abnormal Labs 05/29/17 05/29/17 05/29/17 16:41 16:41 16:58 WBC 21.6 H RBC Hgb Hct MCH 27 L RDW 18.8 H Seg Neuts % (Manual) 90.0 H Lymphocytes % (Manual) 1.0 L Seg Neutrophils # Man 19.4 H Lymphocytes # (Manual) 0.2 L D-Dimer 2328.67 H POC ABG pH POC ABG pCO2 POC ABG pO2 BUN Creatinine 0.5 L Glucose 121 H Calcium NT-Pro-B Natriuret Pep 05/29/17 05/29/17 05/29/17 16:58 18:36 20:55 WBC RBC Hgb Hct MCH RDW Seg Neuts % (Manual) Lymphocytes % (Manual) Seg Neutrophils # Man Lymphocytes # (Manual) D-Dimer POC ABG pH 7.240 L POC ABG pCO2 28.7 L 47.0 H POC ABG pO2 32 L 43 L BUN Creatinine Glucose Calcium NT-Pro-B Natriuret Pep 1053 H 05/30/17 05/30/17 05/30/17 03:38 03:38 04:30 WBC 30.8 H RBC Hgb Hct MCH 26 L RDW 18.6 H Seg Neuts % (Manual) 74.0 H Lymphocytes % (Manual) 4.0 L Seg Neutrophils # Man 22.8 H Lymphocytes # (Manual) D-Dimer POC ABG pH POC ABG pCO2 POC ABG pO2 68 L BUN Creatinine 0.5 L Glucose 165 H Calcium 8.2 L NT-Pro-B Natriuret Pep 05/30/17 05/31/17 05/31/17 18:54 04:12 08:49 WBC 23.7 H RBC 3.64 L Hgb 9.6 L Hct 29.9 L MCH 27 L RDW 18.4 H Seg Neuts % (Manual) Lymphocytes % (Manual) Seg Neutrophils # Man Lymphocytes # (Manual) D-Dimer POC ABG pH 7.339 L 7.335 L POC ABG pCO2 50.1 H 51.1 H POC ABG pO2 54 L BUN Creatinine Glucose Calcium NT-Pro-B Natriuret Pep 05/31/17 08:49 WBC RBC Hgb Hct MCH RDW Seg Neuts % (Manual) Lymphocytes % (Manual) Seg Neutrophils # Man Lymphocytes # (Manual) D-Dimer POC ABG pH POC ABG pCO2 POC ABG pO2 BUN 22 H Creatinine 0.5 L Glucose 135 H Calcium 8.3 L NT-Pro-B Natriuret Pep
[2017-05-31] MEDS: LASIX IV SCH (17:14)
[2017-06-01] MEDS: fentaNYL DRIP Premix 2,000 MCG/100 ML BAG IV SCH ×2 (01:45→05:21)
[2017-06-01] MEDS: DUONEB *Not for PRN Use IH SCH ×4 (02:14→19:14)
[2017-06-01] MEDS: DIPRIVAN 10 MG/ML 1,000 MG/100 ML BOTTLE IV SCH (03:08)
--- NOTE | 2017-06-01 03:16 | XRay Report ---
FINAL REPORT PROCEDURE: XR CHEST 1V AP TECHNIQUE: Chest radiograph anteroposterior view. CPT 73188 HISTORY: follow up respiratory failure COMPARISON: 05/31/2017 FINDINGS: Heart: Normal. Mediastinum/Vessels: Normal. Lungs/Pleural space: Normal. Bony thorax: No acute osseous abnormality. Life support devices: The endotracheal tube ends 3 centimeters above the serjio.. IMPRESSION: There is no evidence of an acute cardiopulmonary process. The endotracheal tube is properly positioned..
[2017-06-01 05:01] LABS: Hematocrit 29.9 % (30.3-42.9); Hemoglobin 9.8 gm/dl (10.1-14.3); Mean Corpuscular HGB Conc 33 % (30-34); Mean Corpuscular Hemoglobin 27 pg (28-32); Mean Corpuscular Volume 82 fl (79-97); Platelet Count 398 K/mm3 (140-440); Red Blood Count 3.65 M/mm3 (3.65-5.03); Red Cell Distribution Width 18.5 % (13.2-15.2)
[2017-06-01 05:22] LABS: BUN/Creatinine Ratio 53; Blood Urea Nitrogen 32 mg/dL (7-17); Calcium 8.6 mg/dL (8.4-10.2); Hemolysis Index 1
[2017-06-01] MEDS: LASIX IV SCH ×2 (05:52→18:08)
[2017-06-01] MEDS: HEPARIN SUB-Q SCH ×3 (05:52→22:28)
[2017-06-01] MEDS: PULMICORT IH SCH ×2 (07:35→19:14)
[2017-06-01] MEDS: BROVANA NEBU IH SCH ×2 (07:39→19:14)
--- NOTE | 2017-06-01 09:49 | Progress Note ---
Assessment and Plan Assessment and plan: Acute respiratory failure due to asthma exacerbation and acute pulmonary edema. She is intubated, on ventilator. Pulm following. She feels better. Hopefully extubate today Asthma exacerbation. Continue solumedrol, Duoneb Acute pulmonary edema, poss acute CHF. Obtain Echocardiogram, BNP. Lasix given. Continue lasix 40mg iv Q 12hr. Consult cardiology DVT prophylaxis with Heparin. Leukocytosis likely due to SIRS, improving. WBC 16.2 today SIRS. Morbid obesity. Will rehabilitation services counselor after extubated History Interval history: Patient still intubated, Patient with acute resp failure, No fever no chest pain Hospitalist Physical - Physical exam Narrative exam: Gen appearance: Not in acute distress, lying in bed, orally intubated HEENT:Normocephalic,atraumatic Neck:supple, no JVD Lungs: Bilateral rhonchi, bilateral crackles Heart: S1 and S2 regular, no murmurs, rubs or gallop Abdomen: soft, non tender, non distended, normal bowel sounds Ext: Bilateral pedal edema, no clubbing, no cyanosis Neuro: Intubated, opens eyes, follows commands, moves all ext - Constitutional Vitals: Temp Pulse Resp BP Pulse Ox 98.8 F 60 23 175/97 95 06/01/17 08:00 06/01/17 09:30 06/01/17 09:30 06/01/17 09:30 06/01/17 09:30 General appearance: Present: obese Results - Labs CBC & Chem 7: 06/01/17 04:13 06/01/17 04:13 Labs: Laboratory Last Values WBC 16.2 K/mm3 (4.5-11.0) H 06/01/17 04:13 RBC 3.65 M/mm3 (3.65-5.03) 06/01/17 04:13 Hgb 9.8 gm/dl (10.1-14.3) L 06/01/17 04:13 Hct 29.9 % (30.3-42.9) L 06/01/17 04:13 MCV 82 fl (79-97) 06/01/17 04:13 MCH 27 pg (28-32) L 06/01/17 04:13 MCHC 33 % (30-34) 06/01/17 04:13 RDW 18.5 % (13.2-15.2) H 06/01/17 04:13 Plt Count 398 K/mm3 (140-440) 06/01/17 04:13 Add Manual Diff Complete 05/30/17 03:38 Total Counted 100 05/30/17 03:38 Seg Neutrophils % Cuff Folder 05/30/17 03:38 Seg Neuts % (Manual) 74.0 % (40.0-70.0) H 05/30/17 03:38 Band Neutrophils % 21.0 % 05/30/17 03:38 Lymphocytes % (Manual) 4.0 % (13.4-35.0) L 05/30/17 03:38 Reactive Lymphs % (Man) 0 % 05/30/17 03:38 Monocytes % (Manual) 1.0 % (0.0-7.3) 05/30/17 03:38 Eosinophils % (Manual) 0 % (0.0-4.3) 05/30/17 03:38 Basophils % (Manual) 0 % (0.0-1.8) 05/30/17 03:38 Metamyelocytes % 0 % 05/30/17 03:38 Myelocytes % 0 % 05/30/17 03:38 Promyelocytes % 0 % 05/30/17 03:38 Blast Cells % 0 % 05/30/17 03:38 Nucleated RBC % Not Reportable 05/30/17 03:38 Seg Neutrophils # Man 22.8 K/mm3 (1.8-7.7) H 05/30/17 03:38 Band Neutrophils # 6.5 K/mm3 05/30/17 03:38 Lymphocytes # (Manual) 1.2 K/mm3 (1.2-5.4) 05/30/17 03:38 Abs React Lymphs (Man) 0.0 K/mm3 05/30/17 03:38 Monocytes # (Manual) 0.3 K/mm3 (0.0-0.8) 05/30/17 03:38 Eosinophils # (Manual) 0.0 K/mm3 (0.0-0.4) 05/30/17 03:38 Basophils # (Manual) 0.0 K/mm3 (0.0-0.1) 05/30/17 03:38 Metamyelocytes # 0.0 K/mm3 05/30/17 03:38 Myelocytes # 0.0 K/mm3 05/30/17 03:38 Promyelocytes # 0.0 K/mm3 05/30/17 03:38 Blast Cells # 0.0 K/mm3 05/30/17 03:38 WBC Morphology Not Reportable 05/30/17 03:38 Hypersegmented Neuts Not Reportable 05/30/17 03:38 Hyposegmented Neuts Not Reportable 05/30/17 03:38 Hypogranular Neuts Not Reportable 05/30/17 03:38 Smudge Cells Not Reportable 05/30/17 03:38 Toxic Granulation Not Reportable 05/30/17 03:38 Toxic Vacuolation Not Reportable 05/30/17 03:38 Dohle Bodies Not Reportable 05/30/17 03:38 Pelger-Huet Anomaly Not Reportable 05/30/17 03:38 Aftab Rods Not Reportable 05/30/17 03:38 Platelet Estimate Appears normal 05/30/17 03:38 Clumped Platelets Not Reportable 05/30/17 03:38 Plt Clumps, EDTA Not Reportable 05/30/17 03:38 Large Platelets Not Reportable 05/30/17 03:38 Giant Platelets Not Reportable 05/30/17 03:38 Platelet Satelliting Not Reportable 05/30/17 03:38 Plt Morphology Comment Not Reportable 05/30/17 03:38 RBC Morphology Not Reportable 05/30/17 03:38 Dimorphic RBCs Not Reportable 05/30/17 03:38 Polychromasia Not Reportable 05/30/17 03:38 Hypochromasia 1+ 05/30/17 03:38 Poikilocytosis Not Reportable 05/30/17 03:38 Anisocytosis 1+ 05/30/17 03:38 Microcytosis Not Reportable 05/30/17 03:38 Macrocytosis Not Reportable 05/30/17 03:38 Spherocytes Not Reportable 05/30/17 03:38 Pappenheimer Bodies Not Reportable 05/30/17 03:38 Sickle Cells Not Reportable 05/30/17 03:38 Target Cells Not Reportable 05/30/17 03:38 Tear Drop Cells Not Reportable 05/30/17 03:38 Ovalocytes Few 05/30/17 03:38 Helmet Cells Not Reportable 05/30/17 03:38 Val[place] Bodies Not Reportable 05/30/17 03:38 [place] Rings Not Reportable 05/30/17 03:38 [place] Cells Not Reportable 05/30/17 03:38 Bite Cells Not Reportable 05/30/17 03:38 Crenated Cell Not Reportable 05/30/17 03:38 Elliptocytes Not Reportable 05/30/17 03:38 Acanthocytes (Spur) Not Reportable 05/30/17 03:38 Rouleaux Not Reportable 05/30/17 03:38 Hemoglobin C Crystals Not Reportable 05/30/17 03:38 Schistocytes Not Reportable 05/30/17 03:38 Malaria parasites Not Reportable 05/30/17 03:38 Stephen Bodies Not Reportable 05/30/17 03:38 Hem Pathologist Commnt No 05/30/17 03:38 D-Dimer 2328.67 ng/mlDDU (0-234) H 05/29/17 16:58 POC ABG pH 7.529 (7.35-7.45) H 06/01/17 04:36 POC ABG pCO2 38.1 (35-45) 06/01/17 04:36 POC ABG pO2 200 (80-105) H 06/01/17 04:36 POC ABG HCO3 31.8 06/01/17 04:36 POC ABG Total CO2 33 06/01/17 04:36 POC ABG O2 Sat 100 06/01/17 04:36 POC ABG Base Excess 9 06/01/17 04:36 FiO2 50 % 06/01/17 04:36 Sodium 143 mmol/L (137-145) 06/01/17 04:13 Potassium 4.4 mmol/L (3.6-5.0) 06/01/17 04:13 Chloride 100.4 mmol/L (98-107) 06/01/17 04:13 Carbon Dioxide 25 mmol/L (22-30) 06/01/17 04:13 Anion Gap 22 mmol/L 06/01/17 04:13 BUN 32 mg/dL (7-17) H 06/01/17 04:13 Creatinine 0.6 mg/dL (0.7-1.2) L 06/01/17 04:13 Estimated GFR > 60 ml/min 06/01/17 04:13 BUN/Creatinine Ratio 53 % 06/01/17 04:13 Glucose 124 mg/dL (65-100) H 06/01/17 04:13 POC Glucose 103 (70-105) 05/31/17 17:26 Calcium 8.6 mg/dL (8.4-10.2) 06/01/17 04:13 Troponin T < 0.010 ng/mL (0.00-0.029) 05/29/17 16:58 NT-Pro-B Natriuret Pep 227.5 pg/mL (0-450) 05/31/17 16:02 HCG, Qual Negative (Negative) 05/29/17 16:41
[2017-06-01] MEDS: cefTRIAXone 1 GM in NACL 0.9% 20 ML IV SCH (10:43)
[2017-06-01] MEDS: ZITHROMAX 500 MG in NACL 0.9% 250ML 250 ML IV SCH (10:43)
[2017-06-01] MEDS: PEPCID IV SCH ×2 (10:50→22:32)
[2017-06-01] MEDS ORDERED: NACL 0.9% 500 ML 500 ML IV ONE (11:12)
--- NOTE | 2017-06-01 11:36 | Progress Note ---
Assessment and Plan 37 y/o female with known asthma and HTN admitted with acute respiratory failure , likely secondary to pulmonary edema from noncompliance with medical therapy. 1. Agree with BID lasix 2. Extubate today 3. Follow up echo 4. Will change to PO prednisone 5. continue BID pulmicort and brovana 6. Stable for transfer out once extubated. Will need BP control CCT 31 minutes. Subjective Date of service: 06/01/17 Interval history: No acute events. CXR is now clear. Awake and alert. Family at bedside. Objective Vital Signs - 12hr 05/31/17 05/31/17 05/31/17 23:31 23:41 23:51 Temperature Pulse Rate 58 L 57 L 57 L Pulse Rate [ Anterior Throughout] Pulse Rate [ From Monitor] Respiratory 14 23 20 Rate Respiratory Rate [Anterior Throughout] Blood Pressure 130/49 130/49 130/49 O2 Sat by Pulse 94 99 100 Oximetry 05/31/17 06/01/17 06/01/17 23:55 00:00 00:11 Temperature 97.9 F Pulse Rate 62 52 L 60 Pulse Rate [ Anterior Throughout] Pulse Rate [ 60 From Monitor] Respiratory 23 23 Rate Respiratory Rate [Anterior Throughout] Blood Pressure 130/49 126/60 126/60 O2 Sat by Pulse 98 93 99 Oximetry 06/01/17 06/01/17 06/01/17 00:21 00:31 00:41 Temperature Pulse Rate 54 L 56 L 52 L Pulse Rate [ Anterior Throughout] Pulse Rate [ From Monitor] Respiratory 22 23 23 Rate Respiratory Rate [Anterior Throughout] Blood Pressure 126/60 126/60 126/60 O2 Sat by Pulse 99 99 100 Oximetry 06/01/17 06/01/17 06/01/17 00:51 01:01 01:11 Temperature Pulse Rate 52 L 51 L 51 L Pulse Rate [ Anterior Throughout] Pulse Rate [ From Monitor] Respiratory 20 23 23 Rate Respiratory Rate [Anterior Throughout] Blood Pressure 126/60 126/60 126/60 O2 Sat by Pulse 99 100 99 Oximetry 06/01/17 06/01/17 06/01/17 01:21 01:31 01:41 Temperature Pulse Rate 52 L 52 L 51 L Pulse Rate [ Anterior Throughout] Pulse Rate [ From Monitor] Respiratory 23 23 22 Rate Respiratory Rate [Anterior Throughout] Blood Pressure 126/60 126/60 126/60 O2 Sat by Pulse 99 98 99 Oximetry 06/01/17 06/01/17 06/01/17 01:51 02:00 02:11 Temperature Pulse Rate 52 L 50 L 51 L Pulse Rate [ Anterior Throughout] Pulse Rate [ From Monitor] Respiratory 23 23 23 Rate Respiratory Rate [Anterior Throughout] Blood Pressure 127/72 128/72 128/72 O2 Sat by Pulse 98 96 98 Oximetry 06/01/17 06/01/17 06/01/17 02:21 02:30 02:41 Temperature Pulse Rate 59 L 50 L 54 L Pulse Rate [ Anterior Throughout] Pulse Rate [ From Monitor] Respiratory 23 23 23 Rate Respiratory Rate [Anterior Throughout] Blood Pressure 128/72 143/81 143/81 O2 Sat by Pulse 99 84 99 Oximetry 06/01/17 06/01/17 06/01/17 02:51 03:01 03:10 Temperature Pulse Rate 67 55 L 56 L Pulse Rate [ Anterior Throughout] Pulse Rate [ From Monitor] Respiratory 20 23 20 Rate Respiratory Rate [Anterior Throughout] Blood Pressure 143/81 135/73 135/73 O2 Sat by Pulse 100 93 99 Oximetry 06/01/17 06/01/17 06/01/17 03:20 03:30 03:41 Temperature Pulse Rate 49 L 55 L 63 Pulse Rate [ Anterior Throughout] Pulse Rate [ From Monitor] Respiratory 23 20 23 Rate Respiratory Rate [Anterior Throughout] Blood Pressure 135/73 129/72 129/72 O2 Sat by Pulse 100 94 99 Oximetry 06/01/17 06/01/17 06/01/17 03:51 03:59 04:00 Temperature 97.8 F Pulse Rate 54 L Pulse Rate [ Anterior Throughout] Pulse Rate [ 60 From Monitor] Respiratory 23 23 Rate Respiratory Rate [Anterior Throughout] Blood Pressure 129/72 O2 Sat by Pulse 99 100 Oximetry 06/01/17 06/01/17 06/01/17 04:01 04:11 04:20 Temperature Pulse Rate 51 L 51 L 51 L Pulse Rate [ Anterior Throughout] Pulse Rate [ From Monitor] Respiratory 23 23 Rate Respiratory Rate [Anterior Throughout] Blood Pressure 144/57 144/57 144/57 O2 Sat by Pulse 89 98 99 Oximetry 06/01/17 06/01/17 06/01/17 04:21 04:31 04:41 Temperature Pulse Rate 53 L 54 L 58 L Pulse Rate [ Anterior Throughout] Pulse Rate [ From Monitor] Respiratory 23 23 16 Rate Respiratory Rate [Anterior Throughout] Blood Pressure 144/57 148/74 148/74 O2 Sat by Pulse 99 89 99 Oximetry 06/01/17 06/01/17 06/01/17 04:51 05:00 05:11 Temperature Pulse Rate 52 L 60 54 L Pulse Rate [ Anterior Throughout] Pulse Rate [ From Monitor] Respiratory 23 23 23 Rate Respiratory Rate [Anterior Throughout] Blood Pressure 148/74 156/82 156/82 O2 Sat by Pulse 98 87 98 Oximetry 06/01/17 06/01/17 06/01/17 05:21 05:31 05:41 Temperature Pulse Rate 53 L 56 L 80 Pulse Rate [ Anterior Throughout] Pulse Rate [ From Monitor] Respiratory 23 22 18 Rate Respiratory Rate [Anterior Throughout] Blood Pressure 156/82 142/73 142/73 O2 Sat by Pulse 98 90 97 Oximetry 06/01/17 06/01/17 06/01/17 05:51 06:01 06:11 Temperature Pulse Rate 55 L 77 54 L Pulse Rate [ Anterior Throughout] Pulse Rate [ From Monitor] Respiratory 23 18 23 Rate Respiratory Rate [Anterior Throughout] Blood Pressure 142/73 142/73 138/67 O2 Sat by Pulse 100 99 100 Oximetry 06/01/17 06/01/17 06/01/17 06:21 06:30 06:41 Temperature Pulse Rate 64 64 60 Pulse Rate [ Anterior Throughout] Pulse Rate [ From Monitor] Respiratory 15 22 22 Rate Respiratory Rate [Anterior Throughout] Blood Pressure 138/67 145/79 145/79 O2 Sat by Pulse 100 91 100 Oximetry 06/01/17 06/01/17 06/01/17 06:51 07:01 07:11 Temperature Pulse Rate 66 54 L 57 L Pulse Rate [ Anterior Throughout] Pulse Rate [ From Monitor] Respiratory 24 23 23 Rate Respiratory Rate [Anterior Throughout] Blood Pressure 145/79 135/57 135/57 O2 Sat by Pulse 99 89 100 Oximetry 06/01/17 06/01/17 06/01/17 07:21 07:24 07:30 Temperature Pulse Rate 86 60 55 L Pulse Rate [ Anterior Throughout] Pulse Rate [ From Monitor] Respiratory 17 23 Rate Respiratory Rate [Anterior Throughout] Blood Pressure 135/57 135/57 155/74 O2 Sat by Pulse 100 99 92 Oximetry 06/01/17 06/01/17 06/01/17 07:35 07:37 07:41 Temperature Pulse Rate 56 L Pulse Rate [ 59 L 55 L Anterior Throughout] Pulse Rate [ From Monitor] Respiratory 23 Rate Respiratory 23 23 Rate [Anterior Throughout] Blood Pressure 155/74 O2 Sat by Pulse 99 Oximetry 06/01/17 06/01/17 06/01/17 07:51 08:00 08:11 Temperature 98.8 F Pulse Rate 54 L 58 L 60 Pulse Rate [ Anterior Throughout] Pulse Rate [ From Monitor] Respiratory 20 23 23 Rate Respiratory Rate [Anterior Throughout] Blood Pressure 155/74 159/85 159/85 O2 Sat by Pulse 100 99 99 Oximetry 06/01/17 06/01/17 06/01/17 08:21 08:30 08:40 Temperature Pulse Rate 59 L 61 58 L Pulse Rate [ Anterior Throughout] Pulse Rate [ From Monitor] Respiratory 20 20 23 Rate Respiratory Rate [Anterior Throughout] Blood Pressure 159/85 159/85 O2 Sat by Pulse 99 98 100 Oximetry 06/01/17 06/01/17 06/01/17 08:50 09:00 09:10 Temperature Pulse Rate 60 57 L 54 L Pulse Rate [ Anterior Throughout] Pulse Rate [ From Monitor] Respiratory 23 20 23 Rate Respiratory Rate [Anterior Throughout] Blood Pressure 149/80 157/91 157/91 O2 Sat by Pulse 100 94 100 Oximetry 06/01/17 06/01/17 09:20 09:30 Temperature Pulse Rate 60 60 Pulse Rate [ Anterior Throughout] Pulse Rate [ From Monitor] Respiratory 23 23 Rate Respiratory Rate [Anterior Throughout] Blood Pressure 157/91 175/97 O2 Sat by Pulse 100 95 Oximetry Constitutional: no acute distress, alert Eyes: non-icteric ENT: other (orally intubated and sedated) Neck: supple Effort: normal Ascultation: Bilateral: diminished breath sounds, rales (ocassional) Percussion: Bilateral: not dull Cardiovascular: regular rate and rhythm Gastrointestinal: normoactive bowel sounds, soft, other (mildly obese) Integumentary: normal Extremities: edema Neurologic: normal mental status, non-focal exam CBC and BMP: 06/01/17 04:13 06/01/17 04:13 ABG, PT/INR, D-dimer: ABG POC ABG pH 7.529 (7.35-7.45) H 06/01/17 04:36 POC ABG pCO2 38.1 (35-45) 06/01/17 04:36 POC ABG pO2 200 (80-105) H 06/01/17 04:36 POC ABG HCO3 31.8 06/01/17 04:36 POC ABG Total CO2 33 06/01/17 04:36 POC ABG O2 Sat 100 06/01/17 04:36 PT/INR, D-dimer D-Dimer 2328.67 ng/mlDDU (0-234) H 05/29/17 16:58 Abnormal lab findings: Abnormal Labs 05/29/17 05/29/17 05/29/17 16:41 16:41 16:58 WBC 21.6 H RBC Hgb Hct MCH 27 L RDW 18.8 H Seg Neuts % (Manual) 90.0 H Lymphocytes % (Manual) 1.0 L Seg Neutrophils # Man 19.4 H Lymphocytes # (Manual) 0.2 L D-Dimer 2328.67 H POC ABG pH POC ABG pCO2 POC ABG pO2 BUN Creatinine 0.5 L Glucose 121 H Calcium NT-Pro-B Natriuret Pep 05/29/17 05/29/17 05/29/17 16:58 18:36 20:55 WBC RBC Hgb Hct MCH RDW Seg Neuts % (Manual) Lymphocytes % (Manual) Seg Neutrophils # Man Lymphocytes # (Manual) D-Dimer POC ABG pH 7.240 L POC ABG pCO2 28.7 L 47.0 H POC ABG pO2 32 L 43 L BUN Creatinine Glucose Calcium NT-Pro-B Natriuret Pep 1053 H 05/30/17 05/30/17 05/30/17 03:38 03:38 04:30 WBC 30.8 H RBC Hgb Hct MCH 26 L RDW 18.6 H Seg Neuts % (Manual) 74.0 H Lymphocytes % (Manual) 4.0 L Seg Neutrophils # Man 22.8 H Lymphocytes # (Manual) D-Dimer POC ABG pH POC ABG pCO2 POC ABG pO2 68 L BUN Creatinine 0.5 L Glucose 165 H Calcium 8.2 L NT-Pro-B Natriuret Pep 05/30/17 05/31/17 05/31/17 18:54 04:12 08:49 WBC 23.7 H RBC 3.64 L Hgb 9.6 L Hct 29.9 L MCH 27 L RDW 18.4 H Seg Neuts % (Manual) Lymphocytes % (Manual) Seg Neutrophils # Man Lymphocytes # (Manual) D-Dimer POC ABG pH 7.339 L 7.335 L POC ABG pCO2 50.1 H 51.1 H POC ABG pO2 54 L BUN Creatinine Glucose Calcium NT-Pro-B Natriuret Pep 05/31/17 06/01/17 06/01/17 08:49 04:13 04:13 WBC 16.2 H RBC Hgb 9.8 L Hct 29.9 L MCH 27 L RDW 18.5 H Seg Neuts % (Manual) Lymphocytes % (Manual) Seg Neutrophils # Man Lymphocytes # (Manual) D-Dimer POC ABG pH POC ABG pCO2 POC ABG pO2 BUN 22 H 32 H Creatinine 0.5 L 0.6 L Glucose 135 H 124 H Calcium 8.3 L NT-Pro-B Natriuret Pep 06/01/17 04:36 WBC RBC Hgb Hct MCH RDW Seg Neuts % (Manual) Lymphocytes % (Manual) Seg Neutrophils # Man Lymphocytes # (Manual) D-Dimer POC ABG pH 7.529 H POC ABG pCO2 POC ABG pO2 200 H BUN Creatinine Glucose Calcium NT-Pro-B Natriuret Pep
--- NOTE | 2017-06-01 12:08 | Consultation ---
History of Present Illness Consult date: 06/01/17 Past History Past Medical History: GERD, hypertension, other (asthma) Past Surgical History: Other (myomectomy) Social history: denies: smoking Family history: no significant family history Medications and Allergies Allergies Allergy/AdvReac Type Severity Reaction Status Date / Time No Known Allergies Allergy Verified 07/31/13 21:05 Home Medications Medication Instructions Recorded Confirmed Last Taken Type Omeprazole 40 mg PO QAC 05/29/17 05/29/17 Unknown History traMADol [Ultram] 50 mg PO Q6HR PRN 05/29/17 05/29/17 Unknown History Active Meds: Active Medications Al Hydrox/Mg Hydrox/Simethicone (Alum-Mag Hydrox-Simeth [id number]/5ml) 30 ml PO Q4H PRN PRN Reason: Indigestion Albuterol/Ipratropium (Duoneb *Not For Prn Use*) 1 ampul IH Q6HRT [facility] Last Admin: 06/01/17 07:35 Dose: 1 ampul Arformoterol Tartrate (Brovana Nebu) 15 mcg IH Q12HRT [facility] Last Admin: 06/01/17 07:39 Dose: Not Given Bisacodyl (Dulcolax) 10 mg AR QDAY PRN PRN Reason: constipation unrelieved by MOM Budesonide (Pulmicort) 0.5 mg IH Q12HRT [facility] Last Admin: 06/01/17 07:35 Dose: 0.5 mg Famotidine (Pepcid) 20 mg IV BID [facility] Last Admin: 06/01/17 10:50 Dose: 20 mg Furosemide (Lasix) 40 mg IV 0600,1800 [facility] Last Admin: 06/01/17 05:52 Dose: 40 mg Heparin Sodium (Porcine) (Heparin) 5,000 unit SUB-Q Q8HR [facility] Last Admin: 06/01/17 05:52 Dose: 5,000 unit Hydrophilic Ointment (Vaseline Lip Therapy) 1 applic TP Q2HR PRN PRN Reason: Dry Lips Last Admin: 05/30/17 10:42 Dose: 1 applic Propofol (Diprivan 10 Mg/Ml) 1,000 mg in 100 mls @ 3.143 mls/hr IV TITR [facility]; Protocol Last Titration: 06/01/17 07:50 Dose: 0 mcg/kg/min, 0 mls/hr Fentanyl Citrate (Fentanyl Drip Premix) 2,000 mcg in 100 mls @ 5.239 mls/hr IV TITR [facility]; Protocol Last Titration: 06/01/17 11:00 Dose: 0 mcg/kg/hr, 0 mls/hr Sodium Chloride (Nacl 0.9% 500 Ml) 500 mls @ 0 mls/hr IV ONCE ONE Stop: 06/01/17 11:13 Magnesium Hydroxide (Milk Of Magnesia) 30 ml PO Q4H PRN PRN Reason: Constipation Multi-Ingred Cream/Lotion/Oil/Oint (Artificial Tears Ophth Oint) 1 applic OU Q4HR PRN PRN Reason: Dry Eye(s) Prednisone (Deltasone) 60 mg PO QDAY [facility] Physical Examination Vital Signs Pulse Ox 89 05/29/17 16:32 Results 06/01/17 04:13 06/01/17 04:13 CBC 06/01/17 Range/Units 04:13 WBC 16.2 H (4.5-11.0) K/mm3 RBC 3.65 (3.65-5.03) M/mm3 Hgb 9.8 L (10.1-14.3) gm/dl Hct 29.9 L (30.3-42.9) % Plt Count 398 (140-440) K/mm3 Comprehensive Metabolic Panel 06/01/17 Range/Units 04:13 Sodium 143 (137-145) mmol/L Potassium 4.4 (3.6-5.0) mmol/L Chloride 100.4 (98-107) mmol/L Carbon Dioxide 25 (22-30) mmol/L BUN 32 H (7-17) mg/dL Creatinine 0.6 L (0.7-1.2) mg/dL Glucose 124 H (65-100) mg/dL Calcium 8.6 (8.4-10.2) mg/dL Assessment and Plan Detailed Cardiology consult done.
--- NOTE | 2017-06-01 23:30 | Consultation ---
CARDIOLOGY CONSULTATION REFERRING PHYSICIAN: Dr. Eyal Piña. HISTORY OF PRESENT ILLNESS: A 37-year-old morbidly obese (BMI of 42.9) pleasant woman who was brought to the Emergency Room with a history of shortness of breath, wheezing and some chest tightness for 3-4 days' duration. She also had a cough with expectoration. She has history of bronchial asthma and she was treated for acute exacerbation of asthma. She went in for acute hypoxemic respiratory failure and she was intubated and placed on assisted mechanical ventilation. The proBNP was 228. The chest x-ray also revealed findings suggestive of bilateral pulmonary edema. CAT scan of the chest did not reveal any evidence of pulmonary embolism, small bilateral pleural effusion and pulmonary edema was seen, pneumonia could not be ruled out. She was treated with intravenous steroids, IV antibiotics, and intravenous diuretics with improvement. She was extubated today. The ABGs revealed CO2 retention and hypoxemia. The D-dimer was increased to 2329. Blood cultures x 2 are negative. PAST MEDICAL HISTORY: History of chronic bronchial asthma. No history of hypertension or diabetes mellitus. No history of hyperlipidemia. PAST SURGICAL HISTORY: She has had neck surgery (fusion of cervical spine). SOCIAL HISTORY: She has been a chronic light cigarette smoker. She has been smoking about 6 cigarettes per day for the past 15 years. No history of alcoholic or drug abuse. Of note, she has a history of pneumonia during 08/2016. FAMILY HISTORY: Her grandfather (father's father) had a myocardial infarction before the age of 55. Further details are not known at this time. ALLERGIES: None known. MEDICATIONS: Pulmicort inhalation q. 12 hours. She received IV ceftriaxone in the Emergency Room one dose. She has received intravenous furosemide; she is on furosemide 40 mg IV b.i.d. She is on bronchodilator. She was initially given intravenous steroids. At this time, she is on prednisone 60 mg p.o. daily. REVIEW OF SYSTEMS: CARDIOVASCULAR: As described in the history. PULMONARY: As described in the history. METABOLISM AND ENDOCRINOLOGY: As described in the history. BONE AND JOINTS: As described in the history. HEMATOPOIETIC: Leukocytosis during this admission, also anemia (hemoglobin of 9.8). Review of rest of the 10 systems is negative. PHYSICAL EXAMINATION: GENERAL: A 37-year-old morbidly obese, pleasant woman. VITAL SIGNS: She is afebrile, pulse 79 per minute, blood pressure 152/89 mmHg, respirations 20 per minute. NEUROLOGIC: She is alert and oriented x 3. HEENT: Negative. NECK: Supple, no JVD, no bruit, no thyromegaly. HEART: PMI could not be felt, no palpable thrills. Auscultation of the heart reveals S1, S2 heard, regular. S3 is loud. Grade 2/6 harsh ejection systolic murmur is heard over the precardium. EXTREMITIES: Peripheral pulses felt no edema. LUNGS: Bilateral air entry, decreased over the bases. No wheezing. No bronchial breathing. ABDOMEN: Soft, benign. No organomegaly. SKIN: Negative. BONE AND JOINTS: Negative. LABORATORY DATA: ProBNP as described in the history. Initial WBC 23.7, repeat WBC 16.2, hemoglobin and hematocrit is 9.8 and 29.9 respectively, platelet count normal. Potassium 4. BUN and creatinine 32 and 0.6. Sodium 143, chloride 100, CO2 of 25, glucose 124. EKG: Sinus tachycardia with a rate of 123 per minute, otherwise negative. Blood cultures x 2 negative. IMPRESSION: 1. Acute exacerbation of asthma. 2. Acute hypoxemic respiratory failure and has improved now. 3. History of hypertension. 4. Morbid obesity. 5. Anemia. 6. Leukocytosis. 7. Bronchitis. 8. Pulmonary embolism ruled out by CAT scan of the chest. 9.Acute congestive heart failure. RECOMMENDATIONS: 1. We will follow up echocardiogram (being done at this time). 2. Would order 2 sets of serum troponins and follow up. 3. Continue present management including intravenous diuretics. 4. Salt and fluid restriction. 5. We will ask for a fasting lipid panel in a.m. 6. Further recommendations will follow. Thank you. Yours sincerely, JOB# [id number] SEBASTIAN/JOSEPH MONTILLA
[2017-06-02] MEDS: DUONEB *Not for PRN Use IH SCH ×4 (02:30→20:50)
[2017-06-02] MEDS: LASIX IV SCH (06:03)
[2017-06-02] MEDS: HEPARIN SUB-Q SCH ×3 (06:03→22:15)
[2017-06-02 06:16] LABS: Hematocrit 31.6 % (30.3-42.9); Hemoglobin 10.3 gm/dl (10.1-14.3); Mean Corpuscular HGB Conc 33 % (30-34); Mean Corpuscular Hemoglobin 27 pg (28-32); Mean Corpuscular Volume 82 fl (79-97); Platelet Count 419 K/mm3 (140-440); Red Blood Count 3.86 M/mm3 (3.65-5.03); Red Cell Distribution Width 18.6 % (13.2-15.2)
[2017-06-02 06:37] LABS: BUN/Creatinine Ratio 48; Blood Urea Nitrogen 38 mg/dL (7-17); Calcium 8.4 mg/dL (8.4-10.2); Chol/HDL Ratio 6.89 %; HDL Cholesterol 19 mg/dL (40-59); Hemolysis Index 3; LDL Cholesterol,Direct 88 mg/dL (50-130)
[2017-06-02] MEDS: PULMICORT IH SCH ×2 (09:30→20:50)
[2017-06-02] MEDS: BROVANA NEBU IH SCH ×2 (09:30→20:50)
[2017-06-02] MEDS ORDERED: APRESOLINE IV PRN (09:55)
[2017-06-02] MEDS: NORVASC PO SCH (10:26)
[2017-06-02] MEDS: PEPCID PO SCH ×2 (10:26→22:16)
[2017-06-02] MEDS: DELTASONE PO SCH (10:26)
--- NOTE | 2017-06-02 11:13 | Progress Note ---
Assessment and Plan 37 y/o female with known asthma and HTN admitted with acute respiratory failure , likely secondary to pulmonary edema from noncompliance with medical therapy. 1. Prednisone 60 for 2 more days, then 40 for 2, 20 for 2, 10 for 2 then stop 2. BP control, added amlodipine and PRN hydralazine. Need to finish med rec 3. Stable for transfer out of unit. Not sure why she was not moved yesterday. Subjective Date of service: 06/02/17 Interval history: No acute events. Successful extubation on yesterday. Breathing stable. On oral steroids. Objective Vital Signs - 12hr 06/01/17 06/01/17 06/01/17 23:20 23:30 23:40 Temperature Pulse Rate 65 67 67 Pulse Rate [ Anterior Throughout] Respiratory 29 H 28 H 28 H Rate Respiratory Rate [Anterior Throughout] Blood Pressure 101/53 101/53 101/53 O2 Sat by Pulse 96 95 95 Oximetry 06/01/17 06/02/17 06/02/17 23:50 00:00 00:10 Temperature 98.2 F Pulse Rate 62 65 72 Pulse Rate [ Anterior Throughout] Respiratory 26 H 27 H 28 H Rate Respiratory Rate [Anterior Throughout] Blood Pressure 101/53 101/53 101/53 O2 Sat by Pulse 95 96 97 Oximetry 06/02/17 06/02/17 06/02/17 00:20 00:30 00:40 Temperature Pulse Rate 67 59 L 63 Pulse Rate [ Anterior Throughout] Respiratory 27 H 26 H 26 H Rate Respiratory Rate [Anterior Throughout] Blood Pressure 101/53 101/53 101/53 O2 Sat by Pulse 97 97 95 Oximetry 06/02/17 06/02/17 06/02/17 00:50 01:00 01:10 Temperature Pulse Rate 63 60 61 Pulse Rate [ Anterior Throughout] Respiratory 26 H 25 H 27 H Rate Respiratory Rate [Anterior Throughout] Blood Pressure 101/53 101/53 101/53 O2 Sat by Pulse 96 96 95 Oximetry 06/02/17 06/02/17 06/02/17 01:20 01:30 01:40 Temperature Pulse Rate 60 61 63 Pulse Rate [ Anterior Throughout] Respiratory 27 H 26 H 28 H Rate Respiratory Rate [Anterior Throughout] Blood Pressure 101/53 101/53 101/53 O2 Sat by Pulse 96 95 95 Oximetry 06/02/17 06/02/17 06/02/17 01:50 02:00 02:10 Temperature Pulse Rate 61 70 70 Pulse Rate [ Anterior Throughout] Respiratory 26 H 27 H 28 H Rate Respiratory Rate [Anterior Throughout] Blood Pressure 101/53 101/53 101/53 O2 Sat by Pulse 95 96 97 Oximetry 06/02/17 06/02/17 06/02/17 02:20 02:30 02:40 Temperature Pulse Rate 64 59 L 58 L Pulse Rate [ Anterior Throughout] Respiratory 25 H 26 H 25 H Rate Respiratory Rate [Anterior Throughout] Blood Pressure 101/53 101/53 101/53 O2 Sat by Pulse 96 95 95 Oximetry 06/02/17 06/02/17 06/02/17 02:50 03:00 03:10 Temperature Pulse Rate 58 L 59 L 59 L Pulse Rate [ Anterior Throughout] Respiratory 27 H 27 H 28 H Rate Respiratory Rate [Anterior Throughout] Blood Pressure 101/53 101/53 101/53 O2 Sat by Pulse 95 94 95 Oximetry 06/02/17 06/02/17 06/02/17 03:20 03:30 03:40 Temperature Pulse Rate 56 L 58 L 59 L Pulse Rate [ Anterior Throughout] Respiratory 26 H 26 H 28 H Rate Respiratory Rate [Anterior Throughout] Blood Pressure 128/80 128/80 128/80 O2 Sat by Pulse 98 95 94 Oximetry 06/02/17 06/02/17 06/02/17 03:50 04:00 04:10 Temperature 98.8 F Pulse Rate 64 68 67 Pulse Rate [ Anterior Throughout] Respiratory 31 H 29 H 30 H Rate Respiratory Rate [Anterior Throughout] Blood Pressure 128/80 127/70 127/70 O2 Sat by Pulse 92 95 95 Oximetry 06/02/17 06/02/17 06/02/17 04:20 04:30 04:40 Temperature Pulse Rate 62 62 68 Pulse Rate [ Anterior Throughout] Respiratory 28 H 30 H 32 H Rate Respiratory Rate [Anterior Throughout] Blood Pressure 127/70 127/70 127/70 O2 Sat by Pulse 96 95 93 Oximetry 06/02/17 06/02/17 06/02/17 04:50 05:00 05:10 Temperature Pulse Rate 61 72 66 Pulse Rate [ Anterior Throughout] Respiratory 28 H 31 H 25 H Rate Respiratory Rate [Anterior Throughout] Blood Pressure 127/70 127/70 133/66 O2 Sat by Pulse 94 94 96 Oximetry 06/02/17 06/02/17 06/02/17 05:20 05:30 05:40 Temperature Pulse Rate 61 60 66 Pulse Rate [ Anterior Throughout] Respiratory 32 H 28 H 29 H Rate Respiratory Rate [Anterior Throughout] Blood Pressure 133/66 133/66 133/66 O2 Sat by Pulse 95 97 97 Oximetry 06/02/17 06/02/17 06/02/17 05:50 06:00 06:10 Temperature Pulse Rate 63 74 72 Pulse Rate [ Anterior Throughout] Respiratory 28 H 23 17 Rate Respiratory Rate [Anterior Throughout] Blood Pressure 133/66 141/90 141/90 O2 Sat by Pulse 96 97 95 Oximetry 06/02/17 06/02/17 06/02/17 06:20 06:30 06:40 Temperature Pulse Rate 77 70 Pulse Rate [ Anterior Throughout] Respiratory 19 21 Rate Respiratory Rate [Anterior Throughout] Blood Pressure 141/90 141/90 141/90 O2 Sat by Pulse 93 91 95 Oximetry 06/02/17 06/02/17 06/02/17 06:50 07:00 07:10 Temperature Pulse Rate 66 74 Pulse Rate [ Anterior Throughout] Respiratory 17 16 Rate Respiratory Rate [Anterior Throughout] Blood Pressure 141/90 141/90 132/79 O2 Sat by Pulse 97 87 97 Oximetry 06/02/17 06/02/17 06/02/17 07:20 08:00 09:31 Temperature 97.8 F Pulse Rate 87 Pulse Rate [ 77 74 Anterior Throughout] Respiratory 17 Rate Respiratory 18 18 Rate [Anterior Throughout] Blood Pressure 132/79 O2 Sat by Pulse 100 Oximetry 06/02/17 09:32 Temperature Pulse Rate Pulse Rate [ Anterior Throughout] Respiratory Rate Respiratory Rate [Anterior Throughout] Blood Pressure O2 Sat by Pulse 100 Oximetry Constitutional: no acute distress, alert Eyes: non-icteric Neck: supple Effort: normal Ascultation: Bilateral: clear Percussion: Bilateral: not dull Cardiovascular: regular rate and rhythm Gastrointestinal: normoactive bowel sounds, soft, other (mildly obese) Integumentary: normal Extremities: edema Neurologic: normal mental status, non-focal exam CBC and BMP: 06/02/17 06:00 06/02/17 06:00 ABG, PT/INR, D-dimer: ABG POC ABG pH 7.529 (7.35-7.45) H 06/01/17 04:36 POC ABG pCO2 38.1 (35-45) 06/01/17 04:36 POC ABG pO2 200 (80-105) H 06/01/17 04:36 POC ABG HCO3 31.8 06/01/17 04:36 POC ABG Total CO2 33 06/01/17 04:36 POC ABG O2 Sat 100 06/01/17 04:36 PT/INR, D-dimer D-Dimer 2328.67 ng/mlDDU (0-234) H 05/29/17 16:58 Abnormal lab findings: Abnormal Labs 05/29/17 05/29/17 05/29/17 16:41 16:41 16:58 WBC 21.6 H RBC Hgb Hct MCH 27 L RDW 18.8 H Seg Neuts % (Manual) 90.0 H Lymphocytes % (Manual) 1.0 L Seg Neutrophils # Man 19.4 H Lymphocytes # (Manual) 0.2 L D-Dimer 2328.67 H POC ABG pH POC ABG pCO2 POC ABG pO2 BUN Creatinine 0.5 L Glucose 121 H Calcium NT-Pro-B Natriuret Pep HDL Cholesterol 05/29/17 05/29/17 05/29/17 16:58 18:36 20:55 WBC RBC Hgb Hct MCH RDW Seg Neuts % (Manual) Lymphocytes % (Manual) Seg Neutrophils # Man Lymphocytes # (Manual) D-Dimer POC ABG pH 7.240 L POC ABG pCO2 28.7 L 47.0 H POC ABG pO2 32 L 43 L BUN Creatinine Glucose Calcium NT-Pro-B Natriuret Pep 1053 H HDL Cholesterol 05/30/17 05/30/17 05/30/17 03:38 03:38 04:30 WBC 30.8 H RBC Hgb Hct MCH 26 L RDW 18.6 H Seg Neuts % (Manual) 74.0 H Lymphocytes % (Manual) 4.0 L Seg Neutrophils # Man 22.8 H Lymphocytes # (Manual) D-Dimer POC ABG pH POC ABG pCO2 POC ABG pO2 68 L BUN Creatinine 0.5 L Glucose 165 H Calcium 8.2 L NT-Pro-B Natriuret Pep HDL Cholesterol 05/30/17 05/31/17 05/31/17 18:54 04:12 08:49 WBC 23.7 H RBC 3.64 L Hgb 9.6 L Hct 29.9 L MCH 27 L RDW 18.4 H Seg Neuts % (Manual) Lymphocytes % (Manual) Seg Neutrophils # Man Lymphocytes # (Manual) D-Dimer POC ABG pH 7.339 L 7.335 L POC ABG pCO2 50.1 H 51.1 H POC ABG pO2 54 L BUN Creatinine Glucose Calcium NT-Pro-B Natriuret Pep HDL Cholesterol 05/31/17 06/01/17 06/01/17 08:49 04:13 04:13 WBC 16.2 H RBC Hgb 9.8 L Hct 29.9 L MCH 27 L RDW 18.5 H Seg Neuts % (Manual) Lymphocytes % (Manual) Seg Neutrophils # Man Lymphocytes # (Manual) D-Dimer POC ABG pH POC ABG pCO2 POC ABG pO2 BUN 22 H 32 H Creatinine 0.5 L 0.6 L Glucose 135 H 124 H Calcium 8.3 L NT-Pro-B Natriuret Pep HDL Cholesterol 06/01/17 06/02/17 06/02/17 04:36 06:00 06:00 WBC 15.5 H RBC Hgb Hct MCH 27 L RDW 18.6 H Seg Neuts % (Manual) Lymphocytes % (Manual) Seg Neutrophils # Man Lymphocytes # (Manual) D-Dimer POC ABG pH 7.529 H POC ABG pCO2 POC ABG pO2 200 H BUN 38 H Creatinine Glucose Calcium NT-Pro-B Natriuret Pep HDL Cholesterol 19 L
--- NOTE | 2017-06-02 11:24 | Progress Note ---
Assessment and Plan Assessment: Acute heart failure with preserved EF Accelerated HTN - improved Acute respiratory failure - improved Anemia Leukocytosis Bronchitis Asthma Morbid obesity Plan: Echo reviewed - EF 55-60%, no significant valvular abnormalities. Currently stable cardiac status. Pt may tx out of ICU to telemetry from cardiac standpoint. Will continue to medically optimize and plan for lexiscan MPI stress test in near future (likely ). Assessment and plan reviewed with pt at bedside. The patient has been seen in conjunction with Dr. Carbajal who agrees with the assessment and plan of care. Subjective Date of service: 06/02/17 Principal diagnosis: HF Interval history: Pt still c/o DURAN. Objective Last Vital Signs Temp 97.8 F 06/02/17 08:00 Pulse 74 06/02/17 09:31 Resp 18 06/02/17 09:31 BP 132/79 06/02/17 07:20 Pulse Ox 100 06/02/17 09:32 - Physical Examination General: Appears Well HEENT: Positive: PERRL, Normocephaly, Mucus Membranes Moist Neck: Positive: neck supple, trachea midline Cardiac: Positive: Reg Rate and Rhythm, S1/S2 Lungs: Positive: Decreased Breath Sounds Neuro: Positive: Grossly Intact Abdomen: Positive: Soft. Negative: Tender Skin: Positive: Clear. Negative: Rash, Wound Musculoskeletal: No Fluid Collection, No Pain, Normal Range of Motion Extremities: Absent: edema - Labs and Meds Lipids 06/02/17 Range/Units 06:00 Triglycerides 120 (2-149) mg/dL Cholesterol 131 (50-199) mg/dL HDL Cholesterol 19 L (40-59) mg/dL Cholesterol/HDL Ratio 6.89 % CBC 06/02/17 Range/Units 06:00 WBC 15.5 H (4.5-11.0) K/mm3 RBC 3.86 (3.65-5.03) M/mm3 Hgb 10.3 (10.1-14.3) gm/dl Hct 31.6 (30.3-42.9) % Plt Count 419 (140-440) K/mm3 Comprehensive Metabolic Panel 06/02/17 Range/Units 06:00 Sodium 141 (137-145) mmol/L Potassium 3.6 (3.6-5.0) mmol/L Chloride 100.9 (98-107) mmol/L Carbon Dioxide 30 (22-30) mmol/L BUN 38 H (7-17) mg/dL Creatinine 0.8 (0.7-1.2) mg/dL Glucose 99 (65-100) mg/dL Calcium 8.4 (8.4-10.2) mg/dL - Imaging and Cardiology Echo: report reviewed - Telemetry EKG Rhythm: Sinus Rhythm
--- NOTE | 2017-06-02 15:12 | Progress Note ---
Assessment and Plan Assessment and plan: 37-year-old woman who presented with shortness of breath Acute hypoxic respiratory failure on mechanical ventilator less than 96 hours Patient has now been extubated, continue oxygen supplementation Asthma exacerbation. Continue steroids and nebulizer Acute diastolic heart failure, Acute pulmonary edema, continue diuretics, has preserved EF on echo, planned for MPI on SIRS. Noninfectious etiology Morbid obesity. History Interval history: Review of systems Constitutional: No fevers, no malaise, no joint pains CVS: No chest pain, no orthopnea, no dyspnea on exertion, no pedal edema GI: No abdominal pain, no diarrhea, no vomiting, no constipation Respiratory shortness of breath is improving, no wheezing, no coughing Hospitalist Physical - Physical exam Narrative exam: General.: Appears well, no distress, nontoxic HEENT: Moist mucous membranes, extraocular muscles intact, no lymphadenopathy Neck: supple Cardiac: S1-S2 heard Lungs: Decreased air entry Abdomen: soft , nontender, nondistended, bowel sounds positive Extremities: no edema clubbing or cyanosis Skin: no rash or lesions Neurologic: no gross focal deficits Psych: appropriate behavior, appropriate mood, corporative, judgment intact - Constitutional Vitals: Temp Pulse Resp BP Pulse Ox 98.6 F 80 20 111/77 98 06/02/17 14:41 06/02/17 14:41 06/02/17 14:41 06/02/17 14:41 06/02/17 14:41 General appearance: Present: obese Results - Labs CBC & Chem 7: 06/02/17 06:00 06/04/17 06:12 Labs: Laboratory Last Values WBC 15.5 K/mm3 (4.5-11.0) H 06/02/17 06:00 RBC 3.86 M/mm3 (3.65-5.03) 06/02/17 06:00 Hgb 10.3 gm/dl (10.1-14.3) 06/02/17 06:00 Hct 31.6 % (30.3-42.9) 06/02/17 06:00 MCV 82 fl (79-97) 06/02/17 06:00 MCH 27 pg (28-32) L 06/02/17 06:00 MCHC 33 % (30-34) 06/02/17 06:00 RDW 18.6 % (13.2-15.2) H 06/02/17 06:00 Plt Count 419 K/mm3 (140-440) 06/02/17 06:00 Add Manual Diff Complete 05/30/17 03:38 Total Counted 100 05/30/17 03:38 Seg Neutrophils % Route [employer] 05/30/17 03:38 Seg Neuts % (Manual) 74.0 % (40.0-70.0) H 05/30/17 03:38 Band Neutrophils % 21.0 % 05/30/17 03:38 Lymphocytes % (Manual) 4.0 % (13.4-35.0) L 05/30/17 03:38 Reactive Lymphs % (Man) 0 % 05/30/17 03:38 Monocytes % (Manual) 1.0 % (0.0-7.3) 05/30/17 03:38 Eosinophils % (Manual) 0 % (0.0-4.3) 05/30/17 03:38 Basophils % (Manual) 0 % (0.0-1.8) 05/30/17 03:38 Metamyelocytes % 0 % 05/30/17 03:38 Myelocytes % 0 % 05/30/17 03:38 Promyelocytes % 0 % 05/30/17 03:38 Blast Cells % 0 % 05/30/17 03:38 Nucleated RBC % Not Reportable 05/30/17 03:38 Seg Neutrophils # Man 22.8 K/mm3 (1.8-7.7) H 05/30/17 03:38 Band Neutrophils # 6.5 K/mm3 05/30/17 03:38 Lymphocytes # (Manual) 1.2 K/mm3 (1.2-5.4) 05/30/17 03:38 Abs React Lymphs (Man) 0.0 K/mm3 05/30/17 03:38 Monocytes # (Manual) 0.3 K/mm3 (0.0-0.8) 05/30/17 03:38 Eosinophils # (Manual) 0.0 K/mm3 (0.0-0.4) 05/30/17 03:38 Basophils # (Manual) 0.0 K/mm3 (0.0-0.1) 05/30/17 03:38 Metamyelocytes # 0.0 K/mm3 05/30/17 03:38 Myelocytes # 0.0 K/mm3 05/30/17 03:38 Promyelocytes # 0.0 K/mm3 05/30/17 03:38 Blast Cells # 0.0 K/mm3 05/30/17 03:38 WBC Morphology Not Reportable 05/30/17 03:38 Hypersegmented Neuts Not Reportable 05/30/17 03:38 Hyposegmented Neuts Not Reportable 05/30/17 03:38 Hypogranular Neuts Not Reportable 05/30/17 03:38 Smudge Cells Not Reportable 05/30/17 03:38 Toxic Granulation Not Reportable 05/30/17 03:38 Toxic Vacuolation Not Reportable 05/30/17 03:38 Dohle Bodies Not Reportable 05/30/17 03:38 Pelger-Huet Anomaly Not Reportable 05/30/17 03:38 Aftab Rods Not Reportable 05/30/17 03:38 Platelet Estimate Appears normal 05/30/17 03:38 Clumped Platelets Not Reportable 05/30/17 03:38 Plt Clumps, EDTA Not Reportable 05/30/17 03:38 Large Platelets Not Reportable 05/30/17 03:38 Giant Platelets Not Reportable 05/30/17 03:38 Platelet Satelliting Not Reportable 05/30/17 03:38 Plt Morphology Comment Not Reportable 05/30/17 03:38 RBC Morphology Not Reportable 05/30/17 03:38 Dimorphic RBCs Not Reportable 05/30/17 03:38 Polychromasia Not Reportable 05/30/17 03:38 Hypochromasia 1+ 05/30/17 03:38 Poikilocytosis Not Reportable 05/30/17 03:38 Anisocytosis 1+ 05/30/17 03:38 Microcytosis Not Reportable 05/30/17 03:38 Macrocytosis Not Reportable 05/30/17 03:38 Spherocytes Not Reportable 05/30/17 03:38 Pappenheimer Bodies Not Reportable 05/30/17 03:38 Sickle Cells Not Reportable 05/30/17 03:38 Target Cells Not Reportable 05/30/17 03:38 Tear Drop Cells Not Reportable 05/30/17 03:38 Ovalocytes Few 05/30/17 03:38 Helmet Cells Not Reportable 05/30/17 03:38 Val[place]-Parc Bodies Not Reportable 05/30/17 03:38 [place] Rings Not Reportable 05/30/17 03:38 Diggs Cells Not Reportable 05/30/17 03:38 Bite Cells Not Reportable 05/30/17 03:38 Crenated Cell Not Reportable 05/30/17 03:38 Elliptocytes Not Reportable 05/30/17 03:38 Acanthocytes (Spur) Not Reportable 05/30/17 03:38 Rouleaux Not Reportable 05/30/17 03:38 Hemoglobin C Crystals Not Reportable 05/30/17 03:38 Schistocytes Not Reportable 05/30/17 03:38 Malaria parasites Not Reportable 05/30/17 03:38 Stephen Bodies Not Reportable 05/30/17 03:38 Hem Pathologist Commnt No 05/30/17 03:38 D-Dimer 2328.67 ng/mlDDU (0-234) H 05/29/17 16:58 POC ABG pH 7.529 (7.35-7.45) H 06/01/17 04:36 POC ABG pCO2 38.1 (35-45) 06/01/17 04:36 POC ABG pO2 200 (80-105) H 06/01/17 04:36 POC ABG HCO3 31.8 06/01/17 04:36 POC ABG Total CO2 33 06/01/17 04:36 POC ABG O2 Sat 100 06/01/17 04:36 POC ABG Base Excess 9 06/01/17 04:36 FiO2 50 % 06/01/17 04:36 Sodium 141 mmol/L (137-145) 06/02/17 06:00 Potassium 3.6 mmol/L (3.6-5.0) 06/02/17 06:00 Chloride 100.9 mmol/L (98-107) 06/02/17 06:00 Carbon Dioxide 30 mmol/L (22-30) 06/02/17 06:00 Anion Gap 14 mmol/L 06/02/17 06:00 BUN 38 mg/dL (7-17) H 06/02/17 06:00 Creatinine 0.8 mg/dL (0.7-1.2) 06/02/17 06:00 Estimated GFR > 60 ml/min 06/02/17 06:00 BUN/Creatinine Ratio 48 % 06/02/17 06:00 Glucose 99 mg/dL (65-100) 06/02/17 06:00 POC Glucose 103 (70-105) 05/31/17 17:26 Calcium 8.4 mg/dL (8.4-10.2) 06/02/17 06:00 Troponin T < 0.010 ng/mL (0.00-0.029) 06/01/17 18:09 NT-Pro-B Natriuret Pep 227.5 pg/mL (0-450) 05/31/17 16:02 Triglycerides 120 mg/dL (2-149) 06/02/17 06:00 Cholesterol 131 mg/dL (50-199) 06/02/17 06:00 LDL Cholesterol Direct 88 mg/dL (50-130) 06/02/17 06:00 HDL Cholesterol 19 mg/dL (40-59) L 06/02/17 06:00 Cholesterol/HDL Ratio 6.89 % 06/02/17 06:00 HCG, Qual Negative (Negative) 05/29/17 16:41
[2017-06-03] MEDS: DUONEB *Not for PRN Use IH SCH ×4 (02:56→20:37)
[2017-06-03] MEDS: HEPARIN SUB-Q SCH ×4 (06:29→22:57)
[2017-06-03] MEDS ORDERED: NACL 0.9% 1000 ML 1,000 ML ONE (06:44)
[2017-06-03] MEDS: PULMICORT IH SCH ×2 (07:29→20:37)
[2017-06-03] MEDS: BROVANA NEBU IH SCH ×2 (07:29→20:37)
[2017-06-03] MEDS: DELTASONE PO SCH (09:22)
[2017-06-03] MEDS: LASIX IV SCH ×2 (09:22→09:27)
[2017-06-03] MEDS: PEPCID PO SCH (09:23)
[2017-06-03] MEDS: NORVASC PO SCH (09:23)
--- NOTE | 2017-06-03 09:35 | XRay Report ---
PORTABLE CHEST: Respiratory failure. An AP portable view of the chest demonstrates a normal cardiac contour considering the limits of this technique. The lungs are clear with no evidence of infiltrate, fluid or failure. Compared to prior exam of June 01 the patient has been extubated. IMPRESSION: Normal portable chest.
--- NOTE | 2017-06-03 10:03 | Progress Note ---
Assessment and Plan Assessment: Acute heart failure with preserved EF - nearing/at euvolemia Accelerated HTN - improved Acute respiratory failure - improved Anemia Leukocytosis Bronchitis Asthma Morbid obesity Plan: Currently stable cardiac status. Convert IV lasix to PO, 40mg daily. Plan for lexiscan MPI stress test in AM. NPO after MN. Assessment and plan reviewed with pt at bedside. The patient has been seen in conjunction with Dr. Carbajal who agrees with the assessment and plan of care. Subjective Date of service: 06/03/17 Principal diagnosis: HF Interval history: Pt resting comfortably in bed, still c/o DURAN but states this is slowly improving. VSS. Objective Last Vital Signs Temp 98.6 F 06/03/17 08:14 Pulse 70 06/03/17 08:14 Resp 20 06/03/17 08:14 BP 112/61 06/03/17 09:23 Pulse Ox 97 06/03/17 08:14 - Physical Examination General: Appears Well HEENT: Positive: PERRL, Normocephaly, Mucus Membranes Moist Neck: Positive: neck supple, trachea midline Cardiac: Positive: Reg Rate and Rhythm, S1/S2 Lungs: Positive: Decreased Breath Sounds Neuro: Positive: Grossly Intact Abdomen: Positive: Soft. Negative: Tender Skin: Positive: Clear. Negative: Rash, Wound Musculoskeletal: No Fluid Collection, No Pain, Normal Range of Motion Extremities: Absent: edema - Imaging and Cardiology Echo: report reviewed
--- NOTE | 2017-06-03 11:59 | Progress Note ---
Assessment and Plan 37 y/o female with known asthma and HTN admitted with acute respiratory failure , likely secondary to pulmonary edema from noncompliance with medical therapy. 1. Prednisone 60 for 2 more days, then 40 for 2, 20 for 2, 10 for 2 then stop 2. BP control, added amlodipine and PRN hydralazine. Need to finish med rec 3. Needs to be walked off oxygen to assess needs 4. Suggest PT/OT Subjective Date of service: 06/03/17 Principal diagnosis: HF Interval history: No acute events. Going for gloStream in the am. Awake and alert. Still feels week but diuresing well. BP is improved. Objective Vital Signs - 12hr 06/03/17 06/03/17 06/03/17 00:53 02:46 02:57 Temperature 98.0 F Pulse Rate 65 Pulse Rate [ 73 79 Anterior Throughout] Respiratory 18 Rate Respiratory 18 20 Rate [Anterior Throughout] Blood Pressure 115/59 O2 Sat by Pulse 97 Oximetry 06/03/17 06/03/17 06/03/17 07:29 07:40 08:14 Temperature 98.6 F Pulse Rate 70 Pulse Rate [ 73 73 Anterior Throughout] Respiratory 20 Rate Respiratory 18 20 Rate [Anterior Throughout] Blood Pressure 112/61 O2 Sat by Pulse 100 97 Oximetry 06/03/17 09:23 Temperature Pulse Rate Pulse Rate [ Anterior Throughout] Respiratory Rate Respiratory Rate [Anterior Throughout] Blood Pressure 112/61 O2 Sat by Pulse Oximetry Constitutional: no acute distress, alert Eyes: non-icteric ENT: other (orally intubated and sedated) Neck: supple Effort: normal Ascultation: Bilateral: clear, diminished breath sounds, rales (ocassional) Percussion: Bilateral: not dull Cardiovascular: regular rate and rhythm Gastrointestinal: normoactive bowel sounds, soft, other (mildly obese) Integumentary: normal Extremities: edema Neurologic: normal mental status, non-focal exam CBC and BMP: 06/02/17 06:00 06/02/17 06:00 ABG, PT/INR, D-dimer: ABG POC ABG pH 7.529 (7.35-7.45) H 06/01/17 04:36 POC ABG pCO2 38.1 (35-45) 06/01/17 04:36 POC ABG pO2 200 (80-105) H 06/01/17 04:36 POC ABG HCO3 31.8 06/01/17 04:36 POC ABG Total CO2 33 06/01/17 04:36 POC ABG O2 Sat 100 06/01/17 04:36 PT/INR, D-dimer D-Dimer 2328.67 ng/mlDDU (0-234) H 05/29/17 16:58 Abnormal lab findings: Abnormal Labs 05/29/17 05/29/17 05/29/17 16:41 16:41 16:58 WBC 21.6 H RBC Hgb Hct MCH 27 L RDW 18.8 H Seg Neuts % (Manual) 90.0 H Lymphocytes % (Manual) 1.0 L Seg Neutrophils # Man 19.4 H Lymphocytes # (Manual) 0.2 L D-Dimer 2328.67 H POC ABG pH POC ABG pCO2 POC ABG pO2 BUN Creatinine 0.5 L Glucose 121 H Calcium NT-Pro-B Natriuret Pep HDL Cholesterol 05/29/17 05/29/17 05/29/17 16:58 18:36 20:55 WBC RBC Hgb Hct MCH RDW Seg Neuts % (Manual) Lymphocytes % (Manual) Seg Neutrophils # Man Lymphocytes # (Manual) D-Dimer POC ABG pH 7.240 L POC ABG pCO2 28.7 L 47.0 H POC ABG pO2 32 L 43 L BUN Creatinine Glucose Calcium NT-Pro-B Natriuret Pep 1053 H HDL Cholesterol 05/30/17 05/30/17 05/30/17 03:38 03:38 04:30 WBC 30.8 H RBC Hgb Hct MCH 26 L RDW 18.6 H Seg Neuts % (Manual) 74.0 H Lymphocytes % (Manual) 4.0 L Seg Neutrophils # Man 22.8 H Lymphocytes # (Manual) D-Dimer POC ABG pH POC ABG pCO2 POC ABG pO2 68 L BUN Creatinine 0.5 L Glucose 165 H Calcium 8.2 L NT-Pro-B Natriuret Pep HDL Cholesterol 05/30/17 05/31/17 05/31/17 18:54 04:12 08:49 WBC 23.7 H RBC 3.64 L Hgb 9.6 L Hct 29.9 L MCH 27 L RDW 18.4 H Seg Neuts % (Manual) Lymphocytes % (Manual) Seg Neutrophils # Man Lymphocytes # (Manual) D-Dimer POC ABG pH 7.339 L 7.335 L POC ABG pCO2 50.1 H 51.1 H POC ABG pO2 54 L BUN Creatinine Glucose Calcium NT-Pro-B Natriuret Pep HDL Cholesterol 05/31/17 06/01/17 06/01/17 08:49 04:13 04:13 WBC 16.2 H RBC Hgb 9.8 L Hct 29.9 L MCH 27 L RDW 18.5 H Seg Neuts % (Manual) Lymphocytes % (Manual) Seg Neutrophils # Man Lymphocytes # (Manual) D-Dimer POC ABG pH POC ABG pCO2 POC ABG pO2 BUN 22 H 32 H Creatinine 0.5 L 0.6 L Glucose 135 H 124 H Calcium 8.3 L NT-Pro-B Natriuret Pep HDL Cholesterol 06/01/17 06/02/17 06/02/17 04:36 06:00 06:00 WBC 15.5 H RBC Hgb Hct MCH 27 L RDW 18.6 H Seg Neuts % (Manual) Lymphocytes % (Manual) Seg Neutrophils # Man Lymphocytes # (Manual) D-Dimer POC ABG pH 7.529 H POC ABG pCO2 POC ABG pO2 200 H BUN 38 H Creatinine Glucose Calcium NT-Pro-B Natriuret Pep HDL Cholesterol 19 L
--- NOTE | 2017-06-03 13:31 | Progress Note ---
Assessment and Plan Assessment and plan: 37-year-old woman who presented with shortness of breath Acute hypoxic respiratory failure on mechanical ventilator less than 96 hours Patient has now been extubated, continue oxygen supplementation Asthma exacerbation. Continue steroids and nebulizer Acute diastolic heart failure, Acute pulmonary edema, continue diuretics, has preserved EF on echo, planned for MPI on SIRS. Noninfectious etiology Morbid obesity. History Interval history: Review of systems Constitutional: No fevers, no malaise, no joint pains CVS: No chest pain, no orthopnea, no dyspnea on exertion, no pedal edema GI: No abdominal pain, no diarrhea, no vomiting, no constipation Respiratory shortness of breath is improving, no wheezing, no coughing Hospitalist Physical - Physical exam Narrative exam: General.: Appears well, no distress, nontoxic HEENT: Moist mucous membranes, extraocular muscles intact, no lymphadenopathy Neck: supple Cardiac: S1-S2 heard Lungs: Decreased air entry Abdomen: soft , nontender, nondistended, bowel sounds positive Extremities: no edema clubbing or cyanosis Skin: no rash or lesions Neurologic: no gross focal deficits Psych: appropriate behavior, appropriate mood, corporative, judgment intact - Constitutional Vitals: Temp Pulse Resp BP Pulse Ox 98.6 F 70 20 112/61 97 06/03/17 08:14 06/03/17 08:14 06/03/17 08:14 06/03/17 09:23 06/03/17 08:14 General appearance: Present: obese Results - Labs CBC & Chem 7: 06/02/17 06:00 06/04/17 06:12 Labs: Laboratory Last Values WBC 15.5 K/mm3 (4.5-11.0) H 06/02/17 06:00 RBC 3.86 M/mm3 (3.65-5.03) 06/02/17 06:00 Hgb 10.3 gm/dl (10.1-14.3) 06/02/17 06:00 Hct 31.6 % (30.3-42.9) 06/02/17 06:00 MCV 82 fl (79-97) 06/02/17 06:00 MCH 27 pg (28-32) L 06/02/17 06:00 MCHC 33 % (30-34) 06/02/17 06:00 RDW 18.6 % (13.2-15.2) H 06/02/17 06:00 Plt Count 419 K/mm3 (140-440) 06/02/17 06:00 Add Manual Diff Complete 05/30/17 03:38 Total Counted 100 05/30/17 03:38 Seg Neutrophils % Sulfur Chloride Operator 05/30/17 03:38 Seg Neuts % (Manual) 74.0 % (40.0-70.0) H 05/30/17 03:38 Band Neutrophils % 21.0 % 05/30/17 03:38 Lymphocytes % (Manual) 4.0 % (13.4-35.0) L 05/30/17 03:38 Reactive Lymphs % (Man) 0 % 05/30/17 03:38 Monocytes % (Manual) 1.0 % (0.0-7.3) 05/30/17 03:38 Eosinophils % (Manual) 0 % (0.0-4.3) 05/30/17 03:38 Basophils % (Manual) 0 % (0.0-1.8) 05/30/17 03:38 Metamyelocytes % 0 % 05/30/17 03:38 Myelocytes % 0 % 05/30/17 03:38 Promyelocytes % 0 % 05/30/17 03:38 Blast Cells % 0 % 05/30/17 03:38 Nucleated RBC % Not Reportable 05/30/17 03:38 Seg Neutrophils # Man 22.8 K/mm3 (1.8-7.7) H 05/30/17 03:38 Band Neutrophils # 6.5 K/mm3 05/30/17 03:38 Lymphocytes # (Manual) 1.2 K/mm3 (1.2-5.4) 05/30/17 03:38 Abs React Lymphs (Man) 0.0 K/mm3 05/30/17 03:38 Monocytes # (Manual) 0.3 K/mm3 (0.0-0.8) 05/30/17 03:38 Eosinophils # (Manual) 0.0 K/mm3 (0.0-0.4) 05/30/17 03:38 Basophils # (Manual) 0.0 K/mm3 (0.0-0.1) 05/30/17 03:38 Metamyelocytes # 0.0 K/mm3 05/30/17 03:38 Myelocytes # 0.0 K/mm3 05/30/17 03:38 Promyelocytes # 0.0 K/mm3 05/30/17 03:38 Blast Cells # 0.0 K/mm3 05/30/17 03:38 WBC Morphology Not Reportable 05/30/17 03:38 Hypersegmented Neuts Not Reportable 05/30/17 03:38 Hyposegmented Neuts Not Reportable 05/30/17 03:38 Hypogranular Neuts Not Reportable 05/30/17 03:38 Smudge Cells Not Reportable 05/30/17 03:38 Toxic Granulation Not Reportable 05/30/17 03:38 Toxic Vacuolation Not Reportable 05/30/17 03:38 Dohle Bodies Not Reportable 05/30/17 03:38 Pelger-Huet Anomaly Not Reportable 05/30/17 03:38 Aftab Rods Not Reportable 05/30/17 03:38 Platelet Estimate Appears normal 05/30/17 03:38 Clumped Platelets Not Reportable 05/30/17 03:38 Plt Clumps, EDTA Not Reportable 05/30/17 03:38 Large Platelets Not Reportable 05/30/17 03:38 Giant Platelets Not Reportable 05/30/17 03:38 Platelet Satelliting Not Reportable 05/30/17 03:38 Plt Morphology Comment Not Reportable 05/30/17 03:38 RBC Morphology Not Reportable 05/30/17 03:38 Dimorphic RBCs Not Reportable 05/30/17 03:38 Polychromasia Not Reportable 05/30/17 03:38 Hypochromasia 1+ 05/30/17 03:38 Poikilocytosis Not Reportable 05/30/17 03:38 Anisocytosis 1+ 05/30/17 03:38 Microcytosis Not Reportable 05/30/17 03:38 Macrocytosis Not Reportable 05/30/17 03:38 Spherocytes Not Reportable 05/30/17 03:38 Pappenheimer Bodies Not Reportable 05/30/17 03:38 Sickle Cells Not Reportable 05/30/17 03:38 Target Cells Not Reportable 05/30/17 03:38 Tear Drop Cells Not Reportable 05/30/17 03:38 Ovalocytes Few 05/30/17 03:38 Helmet Cells Not Reportable 05/30/17 03:38 Valdez-Milstead Bodies Not Reportable 05/30/17 03:38 Dousman Rings Not Reportable 05/30/17 03:38 Berne Cells Not Reportable 05/30/17 03:38 Bite Cells Not Reportable 05/30/17 03:38 Crenated Cell Not Reportable 05/30/17 03:38 Elliptocytes Not Reportable 05/30/17 03:38 Acanthocytes (Spur) Not Reportable 05/30/17 03:38 Rouleaux Not Reportable 05/30/17 03:38 Hemoglobin C Crystals Not Reportable 05/30/17 03:38 Schistocytes Not Reportable 05/30/17 03:38 Malaria parasites Not Reportable 05/30/17 03:38 Stephen Bodies Not Reportable 05/30/17 03:38 Hem Pathologist Commnt No 05/30/17 03:38 D-Dimer 2328.67 ng/mlDDU (0-234) H 05/29/17 16:58 POC ABG pH 7.529 (7.35-7.45) H 06/01/17 04:36 POC ABG pCO2 38.1 (35-45) 06/01/17 04:36 POC ABG pO2 200 (80-105) H 06/01/17 04:36 POC ABG HCO3 31.8 06/01/17 04:36 POC ABG Total CO2 33 06/01/17 04:36 POC ABG O2 Sat 100 06/01/17 04:36 POC ABG Base Excess 9 06/01/17 04:36 FiO2 50 % 06/01/17 04:36 Sodium 141 mmol/L (137-145) 06/02/17 06:00 Potassium 3.6 mmol/L (3.6-5.0) 06/02/17 06:00 Chloride 100.9 mmol/L (98-107) 06/02/17 06:00 Carbon Dioxide 30 mmol/L (22-30) 06/02/17 06:00 Anion Gap 14 mmol/L 06/02/17 06:00 BUN 38 mg/dL (7-17) H 06/02/17 06:00 Creatinine 0.8 mg/dL (0.7-1.2) 06/02/17 06:00 Estimated GFR > 60 ml/min 06/02/17 06:00 BUN/Creatinine Ratio 48 % 06/02/17 06:00 Glucose 99 mg/dL (65-100) 06/02/17 06:00 POC Glucose 103 (70-105) 05/31/17 17:26 Calcium 8.4 mg/dL (8.4-10.2) 06/02/17 06:00 Troponin T < 0.010 ng/mL (0.00-0.029) 06/01/17 18:09 NT-Pro-B Natriuret Pep 227.5 pg/mL (0-450) 05/31/17 16:02 Triglycerides 120 mg/dL (2-149) 06/02/17 06:00 Cholesterol 131 mg/dL (50-199) 06/02/17 06:00 LDL Cholesterol Direct 88 mg/dL (50-130) 06/02/17 06:00 HDL Cholesterol 19 mg/dL (40-59) L 06/02/17 06:00 Cholesterol/HDL Ratio 6.89 % 06/02/17 06:00 HCG, Qual Negative (Negative) 05/29/17 16:41
[2017-06-03] MEDS ORDERED: ZANAFLEX PO PRN (15:20)
[2017-06-03] MEDS ORDERED: NON-FORMULARY (Omeprazole [Omeprazole] 40 MG) PO SCH (16:30)
[2017-06-03] MEDS: NORCO 10/325 PO PRN ×2 (16:59→22:56)
[2017-06-03] MEDS: PROTONIX PO SCH (17:00)
[2017-06-04] MEDS: DUONEB *Not for PRN Use IH SCH ×3 (02:12→14:00)
[2017-06-04] MEDS: HEPARIN SUB-Q SCH ×2 (05:59→18:02)
[2017-06-04 07:08] LABS: BUN/Creatinine Ratio 30; Blood Urea Nitrogen 15 mg/dL (7-17); Calcium 8.3 mg/dL (8.4-10.2); Hemolysis Index 0
[2017-06-04] MEDS: PULMICORT IH SCH (07:45)
[2017-06-04] MEDS: BROVANA NEBU IH SCH (07:45)
[2017-06-04] MEDS ORDERED: LEXISCAN IV ONE ×2 (09:02→09:10)
--- NOTE | 2017-06-04 09:29 | Progress Note ---
Assessment and Plan Assessment: Acute heart failure with preserved EF - nearing/at euvolemia Accelerated HTN - improved Acute respiratory failure - improved Anemia Leukocytosis Bronchitis Asthma Morbid obesity Plan: Currently stable cardiac status. Cont present cardiac regimen. Proceed with lexiscan MPI stress test this AM. Await findings. If negative for ischemia, pt may discharge home today from cardiac perspective. Assessment and plan reviewed with pt at bedside. The patient has been seen in conjunction with Dr. MICH Tilley who agrees with the assessment and plan of care. Subjective Date of service: 06/04/17 Principal diagnosis: HF Interval history: Pt for stress test today. Objective Last Vital Signs Temp 98.2 F 06/04/17 08:12 Pulse 70 06/04/17 08:12 Resp 16 06/04/17 08:12 BP 125/71 06/04/17 08:12 Pulse Ox 99 06/04/17 08:12 - Physical Examination General: Appears Well HEENT: Positive: PERRL, Normocephaly, Mucus Membranes Moist Neck: Positive: neck supple, trachea midline Cardiac: Positive: Reg Rate and Rhythm, S1/S2 Lungs: Positive: clear to auscultation Neuro: Positive: Grossly Intact Abdomen: Positive: Soft. Negative: Tender Skin: Positive: Clear. Negative: Rash, Wound Musculoskeletal: No Fluid Collection, No Pain, Normal Range of Motion Extremities: Absent: edema - Labs and Meds Comprehensive Metabolic Panel 06/04/17 Range/Units 06:12 Sodium 138 (137-145) mmol/L Potassium 3.8 (3.6-5.0) mmol/L Chloride 96.6 L (98-107) mmol/L Carbon Dioxide 30 (22-30) mmol/L BUN 15 (7-17) mg/dL Creatinine 0.5 L (0.7-1.2) mg/dL Glucose 97 (65-100) mg/dL Calcium 8.3 L (8.4-10.2) mg/dL - Imaging and Cardiology Echo: report reviewed
[2017-06-04] MEDS ORDERED: LASIX PO SCH (10:00)
[2017-06-04] MEDS: NORCO 10/325 PO PRN ×2 (11:33→18:03)
[2017-06-04] MEDS: PROTONIX PO SCH ×3 (11:33→18:07)
[2017-06-04] MEDS: DELTASONE PO SCH (11:33)
[2017-06-04] MEDS: NORVASC PO SCH (11:34)
--- NOTE | 2017-06-04 11:34 | XRay Report ---
ROUTINE CHEST, TWO VIEWS: HISTORY: Followup respiratory failure. Compared to 06/03/17. The trachea, heart, mediastinal contour, lung montero and bony thorax are unremarkable. IMPRESSION: Unremarkable chest x-ray.
--- NOTE | 2017-06-04 12:46 | Progress Note ---
Assessment and Plan 37 y/o female with known asthma and HTN admitted with acute respiratory failure , likely secondary to pulmonary edema from noncompliance with medical therapy. No new recs for today. Suggest discharge on the taper. Today would be the last day of prednisone 60 1. Prednisone 60 for 2 more days, then 40 for 2, 20 for 2, 10 for 2 then stop 2. BP control, added amlodipine and PRN hydralazine. Need to finish med rec 3. Needs to be walked off oxygen to assess needs 4. Suggest PT/OT Subjective Date of service: 06/04/17 Principal diagnosis: HF Interval history: Lexiscan this am Objective Vital Signs - 12hr 06/04/17 06/04/17 06/04/17 07:40 07:50 08:12 Temperature 98.2 F Pulse Rate 70 Pulse Rate [ 78 80 Anterior Throughout] Respiratory 16 Rate Respiratory 18 20 Rate [Anterior Throughout] Blood Pressure 125/71 O2 Sat by Pulse 100 99 Oximetry 06/04/17 06/04/17 11:18 11:34 Temperature Pulse Rate Pulse Rate [ Anterior Throughout] Respiratory Rate Respiratory Rate [Anterior Throughout] Blood Pressure 125/71 O2 Sat by Pulse 100 Oximetry Constitutional: no acute distress, alert Eyes: non-icteric ENT: other (orally intubated and sedated) Neck: supple Effort: normal Ascultation: Bilateral: clear, diminished breath sounds, rales (ocassional) Percussion: Bilateral: not dull Cardiovascular: regular rate and rhythm Gastrointestinal: normoactive bowel sounds, soft, other (mildly obese) Integumentary: normal Extremities: edema Neurologic: normal mental status, non-focal exam CBC and BMP: 06/02/17 06:00 06/04/17 06:12 ABG, PT/INR, D-dimer: ABG POC ABG pH 7.529 (7.35-7.45) H 06/01/17 04:36 POC ABG pCO2 38.1 (35-45) 06/01/17 04:36 POC ABG pO2 200 (80-105) H 06/01/17 04:36 POC ABG HCO3 31.8 06/01/17 04:36 POC ABG Total CO2 33 06/01/17 04:36 POC ABG O2 Sat 100 06/01/17 04:36 PT/INR, D-dimer D-Dimer 2328.67 ng/mlDDU (0-234) H 05/29/17 16:58 Abnormal lab findings: Abnormal Labs 05/29/17 05/29/17 05/29/17 16:41 16:41 16:58 WBC 21.6 H RBC Hgb Hct MCH 27 L RDW 18.8 H Seg Neuts % (Manual) 90.0 H Lymphocytes % (Manual) 1.0 L Seg Neutrophils # Man 19.4 H Lymphocytes # (Manual) 0.2 L D-Dimer 2328.67 H POC ABG pH POC ABG pCO2 POC ABG pO2 Chloride BUN Creatinine 0.5 L Glucose 121 H Calcium NT-Pro-B Natriuret Pep HDL Cholesterol 05/29/17 05/29/17 05/29/17 16:58 18:36 20:55 WBC RBC Hgb Hct MCH RDW Seg Neuts % (Manual) Lymphocytes % (Manual) Seg Neutrophils # Man Lymphocytes # (Manual) D-Dimer POC ABG pH 7.240 L POC ABG pCO2 28.7 L 47.0 H POC ABG pO2 32 L 43 L Chloride BUN Creatinine Glucose Calcium NT-Pro-B Natriuret Pep 1053 H HDL Cholesterol 05/30/17 05/30/17 05/30/17 03:38 03:38 04:30 WBC 30.8 H RBC Hgb Hct MCH 26 L RDW 18.6 H Seg Neuts % (Manual) 74.0 H Lymphocytes % (Manual) 4.0 L Seg Neutrophils # Man 22.8 H Lymphocytes # (Manual) D-Dimer POC ABG pH POC ABG pCO2 POC ABG pO2 68 L Chloride BUN Creatinine 0.5 L Glucose 165 H Calcium 8.2 L NT-Pro-B Natriuret Pep HDL Cholesterol 05/30/17 05/31/17 05/31/17 18:54 04:12 08:49 WBC 23.7 H RBC 3.64 L Hgb 9.6 L Hct 29.9 L MCH 27 L RDW 18.4 H Seg Neuts % (Manual) Lymphocytes % (Manual) Seg Neutrophils # Man Lymphocytes # (Manual) D-Dimer POC ABG pH 7.339 L 7.335 L POC ABG pCO2 50.1 H 51.1 H POC ABG pO2 54 L Chloride BUN Creatinine Glucose Calcium NT-Pro-B Natriuret Pep HDL Cholesterol 0306/01/17 06/01/17 08:49 04:13 04:13 WBC 16.2 H RBC Hgb 9.8 L Hct 29.9 L MCH 27 L RDW 18.5 H Seg Neuts % (Manual) Lymphocytes % (Manual) Seg Neutrophils # Man Lymphocytes # (Manual) D-Dimer POC ABG pH POC ABG pCO2 POC ABG pO2 Chloride BUN 22 H 32 H Creatinine 0.5 L 0.6 L Glucose 135 H 124 H Calcium 8.3 L NT-Pro-B Natriuret Pep HDL Cholesterol 06/01/17 06/02/17 06/02/17 04:36 06:00 06:00 WBC 15.5 H RBC Hgb Hct MCH 27 L RDW 18.6 H Seg Neuts % (Manual) Lymphocytes % (Manual) Seg Neutrophils # Man Lymphocytes # (Manual) D-Dimer POC ABG pH 7.529 H POC ABG pCO2 POC ABG pO2 200 H Chloride BUN 38 H Creatinine Glucose Calcium NT-Pro-B Natriuret Pep HDL Cholesterol 19 L 06/04/17 06:12 WBC RBC Hgb Hct MCH RDW Seg Neuts % (Manual) Lymphocytes % (Manual) Seg Neutrophils # Man Lymphocytes # (Manual) D-Dimer POC ABG pH POC ABG pCO2 POC ABG pO2 Chloride 96.6 L BUN Creatinine 0.5 L Glucose Calcium 8.3 L NT-Pro-B Natriuret Pep HDL Cholesterol
--- NOTE | 2017-06-04 13:11 | Event Note ---
Date: 06/04/17 Lexiscan MPI stress test negative for ischemia, EF 61%. Pt may discharge home from cardiology standpoint. Recommend pt follow up with [place] cardiology within 3-5 days of hospital discharge. Meche MORGAN NP / DR. MICH MERLOS
--- NOTE | 2017-06-04 14:37 | Treadmill Report ---
NUCLEAR STRESS TEST The patient is brought to the Cardiology lab and a Lexiscan stress test is performed. The patient tolerated the procedure well. Post-stress images reveal fairly homogeneous distribution of the isotope. No significant reversible defects are noted during rest. Accompanying gated study shows good systolic function with the calculated ejection fraction of 61%. IMPRESSION: 1. Dual isotope study is negative for ischemia. 2. Good systolic function with ejection fraction of 61%. 3. Suggests clinical correlation. JOB# [id number] KBM/NTS
--- NOTE | 2017-06-04 16:19 | Discharge Summary ---
Providers - Providers Date of Admission: 05/29/17 22:47 Attending physician: CHELSEY BULLOCK MD 05/29/17 20:11 Consult to Dietitian/Nutrition [CONS] Routine Physician Instructions: Reason For Exam: Reason for Consult: Evaluate nutritional intake 05/29/17 22:47 Consult to Physician [CONS] Stat Consulting Provider: MARY KAY BONILLA Reason For Exam: respiratory failure Notified:: yes 06/01/17 07:34 Consult to Physician [CONS] Routine Consulting Provider: JAYA KING Reason For Exam: Pulmonary edema, CHF Place consult to:: Alberta Lujan Notified:: yes Phone number called:: Overhead page Was contact made?: Yes If yes, spoke with:: Alberta Lujan Time called:: 09:56 Comment:: wiil see patient Primary care physician: CERTIFIED FIRST ASSISTANT Hospitalization Condition: Serious Hospital course: Lexiscan MPI stress test negative for ischemia, EF 61%. Pt may discharge home from cardiology standpoint. Recommend pt follow up with [place] [facility]ology within 3-5 days of hospital discharge. Disposition: DC-01 TO HOME OR SELFCARE Time spent for discharge: 33 minutes Core Measure Documentation - Palliative Care Palliative Care/ Comfort Measures: Not Applicable - Core Measures Any of the following diagnoses?: none Exam - Constitutional Vitals: Temp Pulse Resp BP Pulse Ox 98.2 F 84 18 125/71 100 06/04/17 08:12 06/04/17 14:23 06/04/17 14:23 06/04/17 11:34 06/04/17 11:18 General appearance: Present: no acute distress, well-nourished - EENT Eyes: Present: PERRL ENT: hearing intact, clear oral mucosa - Neck Neck: Present: supple, normal ROM - Respiratory Respiratory effort: normal Respiratory: bilateral: CTA - Cardiovascular Heart Sounds: Present: S1 & S2. Absent: rub, click - Extremities Extremities: pulses symmetrical, No edema Peripheral Pulses: within normal limits - Abdominal General gastrointestinal: Present: soft, non-tender, non-distended, normal bowel sounds Female genitourinary: Present: normal - Integumentary Integumentary: Present: clear, warm, dry - Musculoskeletal Musculoskeletal: gait normal, strength equal bilaterally - Psychiatric Psychiatric: appropriate mood/affect, intact judgment & insight - Neurologic Neurologic: CNII-XII intact, moves all extremities Plan Follow up with: PRIMARY CARE, [Primary Care Provider] - 3-5 Days Forms: Work/School Release Form
--- NOTE | 2017-06-04 16:19 | Discharge Summary ---
Providers - Providers Date of Admission: 05/29/17 22:47 Attending physician: CHELSEY BULLOCK MD 05/29/17 20:11 Consult to Dietitian/Nutrition [CONS] Routine Physician Instructions: Reason For Exam: Reason for Consult: Evaluate nutritional intake 05/29/17 22:47 Consult to Physician [CONS] Stat Consulting Provider: MARY KAY BONILLA Reason For Exam: respiratory failure Notified:: yes 06/01/17 07:34 Consult to Physician [CONS] Routine Consulting Provider: JAYA KING Reason For Exam: Pulmonary edema, CHF Place consult to:: Alberta Lujan Notified:: yes Phone number called:: Overhead page Was contact made?: Yes If yes, spoke with:: Alberta Lujan Time called:: 09:56 Comment:: wiil see patient Primary care physician: [employer] Hospitalization Condition: Serious Hospital course: 37-year-old woman who presented with shortness of breath. She was found to have acute pulmonary edema and asthma exacerbation. She was intubated, she was weaned off the ventilator successfully. She received diuretics for acute diastolic heart failure she receives steroids and nebulizer treatment for treatment of asthma. Echocardiogram showed a preserved EF, shortness have a stress test that was negative. The patient clinically improved she was weaned off oxygen and subsequently discharged. She is to follow-up with cracker dough mixer and pulmonary doctors at [facility] as an outpatient Discharge diagnoses Acute hypoxic respiratory failure on mechanical ventilator less than 96 hours Asthma exacerbation. Acute diastolic heart failure, Acute pulmonary edema, continue diuretics, has preserved EF on echo, planned for MPI on SIRS. Noninfectious etiology Morbid obesity. Disposition: TO HOME OR SELFCARE Time spent for discharge: 33 minutes Core Measure Documentation - Palliative Care Palliative Care/ Comfort Measures: Not Applicable - Core Measures Any of the following diagnoses?: none Exam - Constitutional Vitals: Temp Pulse Resp BP Pulse Ox 98.2 F 84 18 125/71 100 06/04/17 08:12 06/04/17 14:23 06/04/17 14:23 06/04/17 11:34 06/04/17 11:18 General appearance: Present: no acute distress, well-nourished - EENT Eyes: Present: PERRL ENT: hearing intact, clear oral mucosa - Neck Neck: Present: supple, normal ROM - Respiratory Respiratory effort: normal Respiratory: bilateral: CTA - Cardiovascular Heart Sounds: Present: S1 & S2. Absent: rub, click - Extremities Extremities: pulses symmetrical, No edema Peripheral Pulses: within normal limits - Abdominal General gastrointestinal: Present: soft, non-tender, non-distended, normal bowel sounds Female genitourinary: Present: normal - Integumentary Integumentary: Present: clear, warm, dry - Musculoskeletal Musculoskeletal: gait normal, strength equal bilaterally - Psychiatric Psychiatric: appropriate mood/affect, intact judgment & insight - Neurologic Neurologic: CNII-XII intact, moves all extremities Plan Follow up with: PRIMARY CARE, [Primary Care Provider] - 3-5 Days Forms: Work/School Release Form Prescriptions: ALBUTEROL Inhaler [ProAir HFA Inhaler] 2 puff IH QID PRN #1 inhalation PRN Reason: Shortness Of Breath Albuterol Sulfate [Albuterol 0.63% NEBS] 0.63 mg IH TID PRN #120 neb PRN Reason: Wheezing amLODIPine [Norvasc] 10 mg PO QDAY #30 tablet Budesonide/Formoterol Fumarate [Symbicort 160-4.5 Mcg Inhaler] 10.2 gm IH BID # 1 hfa.aer.ad Furosemide [Lasix TAB] 40 mg PO QDAY #30 tablet HYDROcodone/APAP 10-325 [[place] 10-325 mg TAB] 1 each PO Q6H PRN #14 tablet PRN Reason: Pain, Moderate (4-6) Omeprazole 40 mg PO QAC #60 capsule. predniSONE [Deltasone] 60 mg PO QDAY 8 Days tablet tiZANidine [Zanaflex] 4 mg PO Q8H PRN #30 tablet PRN Reason: Muscle Spasm Other Discharge Orders: Nebulizer (Amb) Location: None Selected
[2017-06-05 12:03] VITALS: BP 145/79
== END 2017-06-04 19:05 | disposition home or self-care (01) | DRG 208 ==
LOC: ED 16:27 → CC1 22:47 → 3A 06-02 13:48
PROVIDERS: ADMIT Internal Medicine; ATTEND Internal Medicine
PROC: 5A1945Z Respiratory Ventilation, 24-96 Consecutive Hours (ICD-10-PCS; principal; 2017-05-29)
PROC: 0BH17EZ Insertion of Endotracheal Airway into Trachea, Via Natural or Artificial Opening (ICD-10-PCS; 2017-05-29)
PROC: 4A033R1 Measurement of Arterial Saturation, Peripheral, Percutaneous Approach (ICD-10-PCS; 2017-05-29)
DX: J96.01 Acute respiratory failure with hypoxia (principal); J81.0 Acute pulmonary edema; I50.31 Acute diastolic (congestive) heart failure; J45.901 Unspecified asthma with (acute) exacerbation; R65.10 Systemic inflammatory response syndrome (SIRS) of non-infectious origin without acute organ dysfunction; Z68.41 Body mass index [BMI] 40.0-44.9, adult; E66.01 Morbid (severe) obesity due to excess calories; I11.0 Hypertensive heart disease with heart failure; F17.200 Nicotine dependence, unspecified, uncomplicated; D72.829 Elevated white blood cell count, unspecified; D64.9 Anemia, unspecified; K21.9 Gastro-esophageal reflux disease without esophagitis; Z91.14 Patient's other noncompliance with medication regimen
CPT/HCPCS: 36415; 36600; 71045; 71046; 71275; 78452; 80048; 80061; 82803; 82962; 83880; 84484; 84703; 85007; 85025; 85027; 85379; 87040; 87070; 87205; 93005; 93010; 93017; 93306; 94002; 94003; 94640; 94760; 96365; 96366; 96367; 96368; 96372; 96375; A9502; J0456; J0696; J1644; J1940; J2704; J2785; J2920; J2930; J3010; J3475; J7030; J7050; J7512; Q9967